=== PATIENT | male | born 1970 | race Caucasian/White ===

== ENCOUNTER 2018-07-01 20:18 | Emergency (ER) | payer BC, SELFPAY ==
[2018-07-01 20:19] VITALS: BP 160/98; PULSE 71; RESP 18; TEMP 36.8; O2SAT 99; BMI 31.0
[2018-07-01 20:35] LABS: Bacteria 0 SEEN /hpf (None Seen); Mucous, Urine 0 SEEN /hpf (<or=2+); Squamous Epithelial Cells - UA 0 SEEN /hpf (0-5)
[2018-07-01 20:36] LABS: Color, Urine Yellow (Yellow); Glucose, Dipstick Normal (Normal); Ketone-Dipstick Negative (Negative); Leukocyte Esterase-Dipstick Negative /ul (Negative); Nitrite-Dipstick Negative (Negative); Occult Blood-Urine 250 /ul (Negative); Protein-Dipstick Negative (Negative); Urine Bilirubin Dipstick Negative (Negative); Urine Clarity Clear (Clear); Urine Urobilinogen Normal (Normal); Urine pH 6.5 (5.0 - 8.0)
[2018-07-01 21:07] LABS: Red Blood Cells-Urine 25-50 SEEN /hpf (0-5); White Blood Cells 0-5 SEEN /hpf (0-5)
[2018-07-01 21:11] LABS: Absolute Lymphocyte Count 1.71 X10^3/ul (0.83-4.51); Absolute Neutrophil Count 3.2 X10^3/uL (2.0-7.7); Basophil# 0.01 X10^3/uL; Basophil% 0.2 % (0-1); Eosinophil# 0.13 X10^3/uL; Eosinophils% 2.3 % (0-5); Hematocrit 41.6 % (40-54); Hemoglobin 14.3 g/dl (13.0-16.5); Lymphocyte # 1.71 X10^3/ul (4.0); Lymphocyte % 30.8 % (19-41); Mean Corp Hgb Conc 34.4 g/gl (32-36); Mean Corpuscular Hgb 30.7 pg (27.0-32.0); Mean Corpuscular Volume 89.3 fL (80-94); Mean Platelet Vol. 10.4 fl (6.2-12.0); Monocyte# 0.46 X10^3/uL; Monocyte% 8.3 % (0-10); Neutrophil # 3.22 X10^3/uL (2.7-7.7); Platelet Count 164 K/mm3 (150-450); RBC Distribution Width CV 12.7 % (11.6-14.6); RBC Distribution Width SD 41.3 fl (35.1-43.9); Red Blood Count 4.66 M/mm3 (4.6-6.2); White Blood Count 5.6 K/mm3 (4.4-11.0)
[2018-07-01 21:17] LABS: POSITIVE COUNT NO; POSITIVE DIFFERENTIAL NO; POSITIVE MORPHOLOGY NO
[2018-07-01 21:21] LABS: Anion Gap 4 (5-15); BUN 15 mg/dL (7-18); BUN/Creat Ratio 13.3 RATIO (10-20); Calcium,Total 8.4 mg/dL (8.5-10.1); Chloride 109 mmol/L (98-107); Creatinine, Serum 1.13 mg/dL (0.70-1.30); EST Glomerular Filtration Rate 74 mL/min (>60); Est Glom Filt Rate - Afr Amer 89 mL/min (>60); Estimated Creatinine Clearance 85.15 ml/min; Glucose 122 mg/dL (74-106); Potassium 3.9 mmol/L (3.5-5.1); Sodium Level 142 mmol/L (136-145)
[2018-07-01] MEDS: 0.9% Normal Saline 1,000 ML 1000 ML IV (21:31)
[2018-07-01] MEDS: Ketorolac 30 MG/ML Syringe IV (21:31)
[2018-07-01 22:00] LABS: AST(SGOT) 25 U/L (15-37); Alanine Aminotransfer ALT/SGPT 46 U/L (16-61); Albumin, Serum 3.7 g/dL (3.2-5.0); Alkaline Phosphatase 109 U/L (45-117); Bilirubin, Direct 0.08 mg/dL (0.00-0.30); Globulin 3.6 g/dL (2.2-4.2); Lipase 135 U/L (73-393); Protein, Total 7.3 g/dL (6.4-8.2)
[2018-07-01 22:20] VITALS: RESP 18
[2018-07-01] MEDS: Morphine 4 MG/ML Syringe IV (22:25)
[2018-07-01] MEDS: Ondansetron 4 MG/2 ML Vial IV (22:25)
--- NOTE | 2018-07-01 23:25 | ED.VISSUMM ---
- ER Visit Summary Date of Service: 07/01/18 Chief Complaint: Flank pain History of Present Illness: The patient is a 48 M who presents with flank pain. It began about 3 days ago. He complains of right lower back pain and right upper quadrant abdominal pain. He currently rates it as 8 out of 10. It is aching in nature. He did have radiation to the right lower abdomen and groin earlier although this seems to be higher now. He reports urinary urgency and does believe there was some associated hematuria. He does have a history of prior kidney stones and notes that this feels similar. He denies fevers. He denies dysuria. Physical Examination: Afebrile vitals are unremarkable Patient in no apparent distress Moist mucous membranes Heart regular rate and rhythm Lungs are clear Abdomen soft nondistended he does have some right upper quadrant tenderness but no guarding no rebound no Rollins's sign Patient also has some reproducible right CVA tenderness Alert Test Results: CBC BMP unremarkable. Hepatic function lipase are unremarkable. Urinalysis shows 250 blood and 25-[address] the flank shows a 3.6 mm distal right ureteral calculus just proximal to the UVJ. There is note made of a prominent appendix however this is similar in appearance to prior scan. Emergency Department Course and Treatment: Patient was initially treated with IV fluids and Toradol. He continued to complain of pain and was given morphine and Zofran and on reevaluation has only minimal pain and his pain is nearly resolved. I did also obtain liver function lipase given that his pain seemed to be higher than I would expect with a ureteral calculus however his CT the flank does confirm distal ureteral calculus. He will follow-up as an outpatient with urology. He was given prescriptions for Percocet and Flomax. He understands to return for new or worsening symptoms and was instructed on specific signs and symptoms to monitor for. Treatment Plan: [] Disposition: Discharge Impression: Ureterolithiasis This note was generated with [employer] dictation software. It may contain incorrect words, spelling, and punctuation that were not noted in review of the chart prior to signing ED Disposition - Plan for ED Patient: Chief Complaint: Flank Pain Referrals: Niurka Marina DO [Primary Care Provider] -
--- NOTE | 2018-07-01 23:28 | ED.DEP ---
ED Disposition - Plan for ED Patient: Chief Complaint: Flank Pain Instructions: ED Stone Renal W Colic Prescriptions: Oxycodone HCl/Acetaminophen [Percocet 5/325] 1 tab PO Q6H PRN PRN 3 Days #12 tab PRN Reason: Pain Tamsulosin HCl [Flomax] 0.4 mg PO DAILY #7 cap Referrals: Niurka Marina DO [Primary Care Provider] - Delonte Kendrick MD [STAFF PHYSICIAN] -
[2018-07-01 23:42] VITALS: BP 160/98; PULSE 71; RESP 18; O2SAT 99
== END 2018-07-01 23:43 | disposition home or self-care (01) ==
LOC: ED 21:40
PROVIDERS: Emergency Provider Emergency Medicine
DX: N20.1 Calculus of ureter (principal); R31.9 Hematuria, unspecified; Z87.442 Personal history of urinary calculi
CPT/HCPCS: 74176; 80048; 80076; 81001; 83690; 85025; 96361; 96374; 96375; 99283; J2405

== ENCOUNTER 2018-08-01 10:30 | Emergency (ER) | payer BC, SELFPAY ==
[2018-08-01 10:31] VITALS: BP 137/88; PULSE 52; RESP 15; TEMP 36.5; O2SAT 99; BMI 66.1
--- NOTE | 2018-08-01 10:33 | NURSING ---
NO OLD EKGS
--- NOTE | 2018-08-01 11:41 | RAD_ITS ---
STUDY: X-RAY CHEST REASON FOR EXAM: Male, 48 years old. Syncope TECHNIQUE: Single AP portable view of the chest. COMPARISON: None. FINDINGS: The lungs are clear and expanded. There is no demonstrated pleural abnormality. There is borderline cardiomegaly. Normal mediastinum and naren. Normal visualized pulmonary arteries. Normal visualized aortic arch and descending thoracic aorta. There are diffuse degenerative changes of the visualized thoracic spine. There is degenerative osteoarthritis of the bilateral shoulders. There is no demonstrated abnormality of the visualized soft tissue structures of the upper abdomen. RAD/Chest 1 View (Portable) IMPRESSION: No acute cardiopulmonary disease. Electronically Signed: Serge Abarca DO at 12:36 EDT Tel , Service support ,
--- NOTE | 2018-08-01 11:41 | EKG12_ITS ---
Test Reason : CP Blood Pressure : / mmHG Vent. Rate : 055 BPM Atrial Rate : 055 BPM P-R Int : 158 ms QRS Dur : 092 ms QT Int : 428 ms P-R-T Axes : 027 012 047 degrees QTc Int : 409 ms Sinus bradycardia Otherwise normal ECG Confirmed by ANALISA SAUNDERS, KAREL ([id number]), editorial project manager TAYLOR NOLASCO ([id number]) on 08/02/2018 1:29:41 PM Referred By: SHADI Confirmed By:KAREL HAUSER MD
[2018-08-01 11:50] LABS: Absolute Lymphocyte Count 1.78 X10^3/ul (0.83-4.51); Absolute Neutrophil Count 2.5 X10^3/uL (2.0-7.7); Basophil# 0.02 X10^3/uL; Basophil% 0.4 % (0-1); Hematocrit 40.7 % (40-54); Hemoglobin 13.5 g/dl (13.0-16.5); Lymphocyte # 1.78 X10^3/ul (4.0); Mean Corp Hgb Conc 33.2 g/gl (32-36); Mean Corpuscular Hgb 29.8 pg (27.0-32.0); Mean Corpuscular Volume 89.8 fL (80-94); Mean Platelet Vol. 10.3 fl (6.2-12.0); Monocyte# 0.57 X10^3/uL; Monocyte% 11.5 % (0-10); Neutrophil # 2.46 X10^3/uL (2.7-7.7); Neutrophil % 49.9 % (47-70); Platelet Count 158 K/mm3 (150-450); RBC Distribution Width CV 12.8 % (11.6-14.6); RBC Distribution Width SD 41.6 fl (35.1-43.9); Red Blood Count 4.53 M/mm3 (4.6-6.2); White Blood Count 4.9 K/mm3 (4.4-11.0)
[2018-08-01 11:54] LABS: POSITIVE COUNT NO; POSITIVE DIFFERENTIAL NO; POSITIVE MORPHOLOGY NO
[2018-08-01 11:55] LABS: Anion Gap 8 (5-15); BUN 14 mg/dL (7-18); BUN/Creat Ratio 14.4 RATIO (10-20); Calcium,Total 8.6 mg/dL (8.5-10.1); Chloride 110 mmol/L (98-107); Creatinine, Serum 0.97 mg/dL (0.70-1.30); EST Glomerular Filtration Rate 87 mL/min (>60); Est Glom Filt Rate - Afr Amer 106 mL/min (>60); Estimated Creatinine Clearance 99.19 ml/min; Glucose 96 mg/dL (74-106); Potassium 3.9 mmol/L (3.5-5.1); Sodium Level 144 mmol/L (136-145)
[2018-08-01 12:18] VITALS: BP 137/97; BP 137/99; BP 140/102; BP 146/95; PULSE 55; PULSE 58; PULSE 60; RESP 15; O2SAT 98
--- NOTE | 2018-08-01 12:47 | ED.VISSUMM ---
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 He went to lay down and felt nauseated to the point where he felt he might throw up. On the way the bathroom he got very weak fell down when he states that he seemed pale. States he feels better now he denies any diarrhea. States he noted he did get some rug yepez on his lower extremities. No other injuries Physical Examination: Afebrile vital signs are stable Gen: Well-nourished well-developed Head: Normocephalic atraumatic Eyes: Perrl EOMI ENT: TMs clear no rhinorrhea moist mucous membranes Neck: Supple no lymphadenopathy no JVD nontender CVS: Regular rate rhythm no murmurs normal S1-S2 Respiratory: No distress clear to auscultation bilaterally chest nontender Abdomen: Soft nontender nondistended normal bowel sounds no masses Back: Nontender Extremity: Nontender no edema Skin: Normal color no rash superficial rug yepez. Neuro: alert orientated ?3 CN II-XII intact normal strength sensation reflexes gait (observed while patient was walking to the bathroom)cerebellar Psych: Normal affect normal mood Test Results: Chest x-ray negative. EKG sinus at a rate of 55. CBC and chemistries were negative. Emergency Department Course and Treatment: I believe this to be vasovagal in nature. Patient will be discharged home. He was advised with his nausea perhaps he is coming down with a viral gastroenteritis but at this time we will have him observe himself at home. Impression: 1. Vasovagal near syncope This note was generated with [employer] dictation software. It may contain incorrect words, spelling, and punctuation that were not noted in review of the chart prior to signing ED Disposition - Plan for ED Patient: Disposition: Home or Assisted Living Chief Complaint: Syncope Instructions: ED Near Syncope Vasovagal Referrals: Niurka Marina DO [Primary Care Provider] - As Needed
--- NOTE | 2018-08-01 12:51 | ED.DCSUM_ITS ---
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 He went to lay down and felt nauseated to the point where he felt he might throw up. On the way the bathroom he got very weak fell down when he states that he seemed pale. States he feels better now he denies any diarrhea. States he noted he did get some rug yepez on his lower extremities. No other injuries Physical Examination: Afebrile vital signs are stable Gen: Well-nourished well-developed Head: Normocephalic atraumatic Eyes: Perrl EOMI ENT: TMs clear no rhinorrhea moist mucous membranes Neck: Supple no lymphadenopathy no JVD nontender CVS: Regular rate rhythm no murmurs normal S1-S2 Respiratory: No distress clear to auscultation bilaterally chest nontender Abdomen: Soft nontender nondistended normal bowel sounds no masses Back: Nontender Extremity: Nontender no edema Skin: Normal color no rash superficial rug yepez. Neuro: alert orientated ?3 CN II-XII intact normal strength sensation reflexes gait (observed while patient was walking to the bathroom)cerebellar Psych: Normal affect normal mood Test Results: Chest x-ray negative. EKG sinus at a rate of 55. CBC and chemistries were negative. Emergency Department Course and Treatment: I believe this to be vasovagal in nature. Patient will be discharged home. He was advised with his nausea perhaps he is coming down with a viral gastroenteritis but at this time we will have him observe himself at home. Impression: 1. Vasovagal near syncope This note was generated with [employer] dictation software. It may contain incorrect words, spelling, and punctuation that were not noted in review of the chart prior to signing ED Disposition - Plan for ED Patient: Disposition: Home or Assisted Living Chief Complaint: Syncope Instructions: ED Near Syncope Vasovagal Referrals: Niurka Marina DO [Primary Care Provider] - As Needed
[2018-08-01 13:17] VITALS: BP 138/80; PULSE 60; RESP 16; O2SAT 99
== END 2018-08-01 13:18 | disposition home or self-care (01) ==
LOC: ED 11:21
PROVIDERS: Emergency Provider Emergency Medicine
DX: R55 Syncope and collapse (principal)
CPT/HCPCS: 71045; 80048; 85025; 93005; 99285; A4216

== ENCOUNTER 2018-08-07 03:30 | Emergency (ER) | payer BC, SELFPAY ==
--- NOTE | 2018-08-07 03:42 | EKG12_ITS ---
Test Reason : Blood Pressure : / mmHG Vent. Rate : 091 BPM Atrial Rate : 091 BPM P-R Int : 152 ms QRS Dur : 088 ms QT Int : 368 ms P-R-T Axes : 028 005 067 degrees QTc Int : 452 ms Normal sinus rhythm Confirmed by DOMINIC SAUNDERS, CARISSA ([id number]), image editor TAYLOR NOLASCO ([id number]) on 08/10/2018 2:23:36 PM Referred By: JALEEL Confirmed By:CARISSA ALFARO MD
[2018-08-07 04:48] LABS: BUN 13 mg/dL (7-18); BUN/Creat Ratio 12.3 RATIO (10-20); Calcium,Total 9.5 mg/dL (8.5-10.1); Creatinine, Serum 1.06 mg/dL (0.70-1.30); EST Glomerular Filtration Rate 79 mL/min (>60); Est Glom Filt Rate - Afr Amer 96 mL/min (>60); Glucose 151 mg/dL (74-106)
[2018-08-07 04:49] LABS: Anion Gap 10 (5-15); Chloride 104 mmol/L (98-107); Potassium 3.6 mmol/L (3.5-5.1); Sodium Level 142 mmol/L (136-145)
[2018-08-07 04:50] LABS: Absolute Lymphocyte Count 1.51 X10^3/ul (0.83-4.51); Absolute Neutrophil Count 4.5 X10^3/uL (2.0-7.7); Basophil# 0.01 X10^3/uL; Basophil% 0.1 % (0-1); Eosinophil# 0.08 X10^3/uL; Eosinophils% 1.2 % (0-5); Hematocrit 47.5 % (40-54); Hemoglobin 16.2 g/dl (13.0-16.5); Lymphocyte # 1.51 X10^3/ul (4.0); Lymphocyte % 22.6 % (19-41); Mean Corp Hgb Conc 34.1 g/gl (32-36); Mean Corpuscular Hgb 30.2 pg (27.0-32.0); Mean Corpuscular Volume 88.6 fL (80-94); Monocyte# 0.51 X10^3/uL; Monocyte% 7.6 % (0-10); Neutrophil # 4.54 X10^3/uL (2.7-7.7); Neutrophil % 68.2 % (47-70); Platelet Count 164 K/mm3 (150-450); RBC Distribution Width CV 12.7 % (11.6-14.6); RBC Distribution Width SD 41.7 fl (35.1-43.9); Red Blood Count 5.36 M/mm3 (4.6-6.2); White Blood Count 6.7 K/mm3 (4.4-11.0)
[2018-08-07 04:55] LABS: POSITIVE COUNT NO; POSITIVE DIFFERENTIAL NO; POSITIVE MORPHOLOGY NO
--- NOTE | 2018-08-07 05:01 | ED.VISSUMM ---
- ER Visit Summary Date of Service: 08/07/18 Chief Complaint: [] Near syncope History of Present Illness: The patient is a 48 M [] patient stated he was in the emergency department last Monday for syncope at home. He was told he had a vagal episode. He reported a negative workup. He had near syncope tonight as he stood up from being on his hands and knees too quickly. He felt lightheaded for about 5-10 minutes. He did not pass out. He denies any other associated symptoms. No chest pain or shortness of breath. He feels normal now. No cardiac PE or dissection risk factors. He has appointment with his doctor this morning. Physical Examination: [] Vital signs reviewed General: Well-nourished well-developed Head: Normocephalic atraumatic Eyes: Pupils equal round and reactive to light extraocular movements intact ENT: TMs clear no hemotympanum no trauma Neck: Nontender full range of motion Cardiovascular: Regular rate rhythm no murmurs normal S1-S2 Respiratory: No distress clear to auscultation bilaterally chest nontender Abdomen: Soft nontender nondistended normal bowel sounds no masses Back: Nontender no CVA tenderness Extremities: Nontender active range of motion ?4 extremities no trauma Skin: Normal color no trauma Neuro alert oriented cranial nerves II through XII intact normal strength sensation reflexes Test Results: [] Emergency Department Course and Treatment: [] EKG shows sinus rhythm 91 without acute ischemia or STEMI. CBC chemistry troponin negative. At this time I feel the patient just had a vasovagal episode and will follow up. Treatment Plan: [] Disposition: [] Impression: [] Near syncope likely secondary to vasovagal episode This note was generated with [employer] dictation software. It may contain incorrect words, spelling, and punctuation that were not noted in review of the chart prior to signing ED Disposition - Plan for ED Patient: Referrals: Niurka Marina DO [Primary Care Provider] -
== END 2018-08-07 05:02 | disposition home or self-care (01) ==
PROVIDERS: Emergency Provider Emergency Medicine
DX: R55 Syncope and collapse (principal); Z87.442 Personal history of urinary calculi
CPT/HCPCS: 36415; 80048; 84484; 85025; 93005; 99283; A4216

== ENCOUNTER 2020-03-22 04:54 | Emergency (ER) | payer BC, SELFPAY ==
[2020-03-22 04:54] VITALS: BP 160/99; PULSE 71; RESP 18; TEMP 36.4; O2SAT 98; BMI 29.9
--- NOTE | 2020-03-22 04:58 | ED.DCSUM_ITS ---
History of Present Illness Chief Complaint: Flank Pain Informant: Patient - Abdominal Pain/Flank Pain Onset: Yesterday Context: Gradual Onset - w/ sudden worsening this AM Timing: Continuous, Waxes and wanes Quality: Aching Location: Left Flank Current Severity: Severe Maximum Severity: Severe Worsened by: Nothing Relieved by: Nothing - Nausea/Vomiting/Emesis GI Symptom: Nausea. Negative for: Vomiting - Diarrhea/Melena/Hematochezia GI Symptom: Negative for: Diarrhea, Melena, Hematochezia Associated Symptoms: Hematuria - without clots/retention. Negative for: Dysuria, Frequency, Urgency Narrative: Left low back pain that started yesterday and was relatively mild but worsened, especially this morning when he woke up with hematuria. Pain more severe along with nausea. No fevers. No burning dysuria. History of kidney stones he has passed many in the past, states it has been quite a while since he has had one. Prior similar symptoms: Yes - kidney stones in the past - Past Medical History (1) Kidney stones Status: Chronic Past Medical History - Allergies and Home Meds Allergies/Adverse Reactions: Allergies Penicillins Allergy (Verified 08/01/18 10:34) Unknown Primary Care Physician: Niurka Marina DO [Primary Care Provider] - Surgical History: - - no prior abdominal or urologic surgeries Smoking Status: Never smoker Review of Systems General: Denies: Chills, Fever, Sweats Eyes: Denies: Visual changes - bilaterally, Diplopia ENT: Denies: Rhinorrhea, Sore throat Cardiovascular: Denies: Chest pain, Palpitations Respiratory: Denies: Dyspnea, Cough, Dyspnea on exertion Gastrointestinal: Reports: Abdominal pain, Nausea. Denies: Vomiting, Diarrhea, Melena, Hematochezia Genitourinary: Reports: Hematuria. Denies: Dysuria, Frequency Musculoskeletal: Reports: Back pain. Denies: Neck pain, Swelling, Extremity Pain Skin: Denies: Rash, Wounds Neurological: Denies: Headache, Weakness, Numbness Physical Exam Vital Signs/Narrative: Vital Signs Temp Pulse Resp BP Pulse Ox 03/22/20 04:54 97.6 F L 71 18 160/99 H 98 Inital Vital Signs reviewed: Yes General: Well nourished, Well developed, Acute Distress - painful Head: Normocephalic, Atraumatic Eyes: Perrl, EOMI ENT: Moist mucous membranes, No rhinorrhea Neck: Supple, Nontender Cardiovascular: Regular rate, Regular rhythm, No murmurs. Negative for: Tachycardia Respiratory: No distress, CTA bilaterally, Chest nontender Abdomen: Soft, Nontender, Nondistended, Normal bowel sounds Back: Normal Inspection - no rash, CVA tenderness - left only Extremities: Nontender, No edema Skin: Normal color, No rash, No Trauma Neurological: Alert, Oriented x3, Cranial nerves II-XII grossly intact, Normal Strength, Normal Sensation, Normal Gait Psychological: Normal affect, Normal Mood Diagnostic/Tx/Re-eval Impressions Abdomen/Pelvis CT 03/22/20 04:58 IMPRESSION: 1 to 2 mm distal left ureteral calculus with minimal obstruction. Nonobstructing left renal calculi. Stable degenerative changes and prosthetic calcification. Electronically Signed: Mary Carmen Barry MD at 5:45 EDT , Service support , 03/22/20 04:58 Abdomen/Pelvis without Cont [CT] Stat Laboratory Results 03/22/20 05:05 Urine Color Red Urine Clarity Cloudy Urine pH 5.0 Ur Specific [place] 1.025 Urine Protein 100 H Urine Glucose (UA) Normal Urine Ketones 5 H Urine Occult Blood 250 H Urine Nitrite Negative Urine Bilirubin Negative Urine Urobilinogen Normal Ur Leukocyte Esterase 25 H Urine RBC > 100 SEEN Urine WBC 5-10 SEEN Ur Squamous Epith Cells 0 SEEN Calcium Oxalate Crystal RARE Urine Bacteria 0 SEEN Urine Mucus 0 SEEN - Medical Decision Making Patient was treated with Zofran and Toradol initially, but the Toradol did not help his pain. Subsequently he was given morphine 4 mg, and is feeling much better. He appears well and his vital signs are stable. I performed a CT since he had not had a stone in a long time, it showed several nonobstructing left small renal stones, and an obstructing 1-2 mm distal left ureteral stone as above. No signs of infection on urinalysis. He will be treated as an outpatient with expectant management, prescriptions for Percocet and Zofran, and reasons to return given uncontrolled symptoms, fevers, urinary retention. Given urology to follow-up with if he does not pass the stone within a week and does not require return visit to the emergency room. All questions answered at bedside he is comfortable with discharge. ED Disposition - Plan for ED Patient: Disposition: Home or Assisted Living Diagnosis: Ureteral colic, Urolithiasis Instructions: ED Renal Stone w Colic Prescriptions: Oxycodone HCl/Acetaminophen [Percocet 5/325] 1 tab PO Q4H PRN 3 Days #15 tab PRN Reason: Pain Prescription Printed Ondansetron [Zofran Odt] 8 mg PO Q8H PRN PRN #20 tab PRN Reason: Nausea Prescription Printed Referrals: Niurka Marina DO [Primary Care Provider] - Delonte Kendrick MD [STAFF PHYSICIAN] - 1 Week if not improving
--- NOTE | 2020-03-22 04:58 | CT_ITS ---
STUDY: CT ABDOMEN AND PELVIS WITHOUT CONTRAST REASON FOR EXAM: Male, 50 years old. HEMATURIA AND LEFT FLANK PAIN/HX OF [place] RADIATION DOSAGE (If Supplied By Facility): CTDIvol = ( 13.23 ) mGy, DLP = ( 737.09 ) mGycm TECHNIQUE: Transaxial 2.5 mm images were obtained from the dome of the diaphragm to the symphysis pubis without oral contrast, and without intravenous contrast. Sagittal and coronal images were reconstructed. This examination is limited for the evaluation of gastrointestinal, solid organs and vascular structures due to the lack of intravenous and oral contrast. Individualized dose optimization techniques were used for this CT. COMPARISON: CT abdomen and pelvis 07/01/2018. 02/03/2016. FINDINGS: The visualized lung bases are unremarkable. The visualized portions of the heart are within normal limits. Normal liver. Normal gallbladder and extrahepatic biliary system. Normal spleen. Normal pancreas. Normal bilateral adrenal glands. There is no right obstructive uropathy, obstructive renal or ureteral calculi. There are at least 3 nonobstructing renal calculi, largest in the inferior pole of 0.3 cm. Minimal left hydronephrosis and hydroureter with a 1 to 2 mm distal left ureteral calculus approximately 4 cm superior to the UVJ. Normal visualized stomach. Normal small intestine. Normal colon. The appendix is visualized and appears normal. Normal abdominal aorta. Normal inferior vena cava. Normal retroperitoneum. Decompressed urinary bladder. There are prostatic calcifications. Prior ostectomy. Normal abdominal wall. There are stable degenerative changes of the visualized lower thoracic spine. CT/Abdomen/Pelvis without Cont IMPRESSION: 1 to 2 mm distal left ureteral calculus with minimal obstruction. Nonobstructing left renal calculi. Stable degenerative changes and prosthetic calcification. Electronically Signed: Mary Carmen Barry MD at 5:45 EDT , Service support ,
[2020-03-22] MEDS: Ketorolac 30 MG/ML Syringe IV (05:06)
[2020-03-22] MEDS: Ondansetron 4 MG/2 ML Vial IV (05:06)
[2020-03-22 05:13] LABS: Bacteria 0 SEEN /hpf (None Seen); Mucous, Urine 0 SEEN /hpf (<or=2+); Squamous Epithelial Cells - UA 0 SEEN /hpf (0-5)
[2020-03-22 05:16] LABS: Color, Urine Red (Yellow); Glucose, Dipstick Normal (Normal); Ketone-Dipstick 5 mg/dl (Negative); Leukocyte Esterase-Dipstick 25 /ul (Negative); Nitrite-Dipstick Negative (Negative); Occult Blood-Urine 250 /ul (Negative); Protein-Dipstick 100 mg/dl (Negative); Specific Gravity, Urine 1.025 (1.002-1.030); Urine Bilirubin Dipstick Negative (Negative); Urine Clarity Cloudy (Clear); Urine Urobilinogen Normal (Normal)
[2020-03-22 05:28] LABS: White Blood Cells 5-10 SEEN /hpf (0-5)
[2020-03-22 05:29] LABS: Calcium Oxalate Crystals Ur RARE /hpf (<or=2+); Red Blood Cells-Urine > 100 SEEN /hpf (0-5)
[2020-03-22] MEDS: Morphine 4 MG/ML Syringe IV (05:44)
--- NOTE | 2020-03-22 05:45 | ED.RN ---
SCANNER IN ROOM NOT WORKING. ANESTHESIA TECH AWARE.
[2020-03-22 06:02] VITALS: BP 112/83; PULSE 56; RESP 16; O2SAT 95
== END 2020-03-22 06:03 | disposition home or self-care (01) ==
PROVIDERS: Emergency Provider Emergency Medicine
DX: N13.2 Hydronephrosis with renal and ureteral calculous obstruction (principal); Z88.0 Allergy status to penicillin; Z87.442 Personal history of urinary calculi
CPT/HCPCS: 74176; 81001; 96374; 96375; 99283; A4216; J2405

== ENCOUNTER 2020-12-02 12:11 | Day surgery (SDC) | payer BC, SELFPAY ==
[2020-12-02] VITALS (7 sets, daily range): BP systolic 117–143; BP diastolic 74–94; PULSE 62–75; RESP 16–20; TEMP 36.1–36.9; O2SAT 93–98; BMI 30.8
--- NOTE | 2020-12-02 12:28 | PCM.HP.STD ---
Problem List (1) Left ureteral calculus Status: Acute History of Present Illness Date of Admission: 12/02/20 The patient is a 50 year old male ureteral calculi today I plan to proceed with left ureteroscopy laser of the stone and removal of stone fragments possible stent. Past Medical History Past Medical History (Chronic Problems): Chronic Problems Kidney stones (Chronic) Allergies Penicillins Allergy (Verified 12/02/20 12:28) Unknown Home Medications: Ambulatory Orders Medication Instructions Recorded Oxycodone HCl/Acetaminophen 1 ea PO PRN PRN 11/25/20 [Oxycodone-Acetaminophen 5-325] Tamsulosin HCl [Flomax] 0.4 mg PO DAILY 11/25/20 Surgical History: - - no prior abdominal or urologic surgeries Smoking Status: Current every day smoker Tobacco Use: Chew Review of Systems Constitutional: Denies: Chills, Fever, Weight Change HEENT: Denies: Head Aches, Sinus Congestion, Sinus Drainage Cardiovascular: Denies: Chest Pain, Palpitations Respiratory: Denies: Cough, Shortness of breath at rest, Sputum production Gastrointestinal: Denies: Abdominal Pain, Nausea, Vomiting Genitourinary: Denies: Dysuria Musculoskeletal: Denies: Joint Pain, Joint Tenderness Skin: Denies: Rash, Wounds Neurological: Denies: Numbness, Tingling, Focal weakness Psychiatric: Denies: Anxiety, Depression, Homicidal Ideations, Suicidal Ideations Hematologic/ Lymphatic: Denies: Easy Bruising, Easy Bleeding VTE Information - Inpt Only VTE Present on Admission: No - Physical Exam Vitals/I&O's: Body Mass Index (BMI) 29.9 General: Alert, Oriented x3, Cooperative HEENT: Atraumatic, PERRLA, EOMI, Normocephalic Neck: Supple, No JVD, Negative Carotid Bruits Lungs: Clear to auscultation, Normal air movement Cardiovascular: Regular rate, No murmurs Abdomen: Bowel Sounds Present, Soft, Non Tender Extremities: No edema, Capillary Refill Less than 3 Seconds Skin: No rashes, No breakdown Musculoskeletal: No Tenderness to Palpation of Joints or Extremities Neurological: Cranial nerves II-XII grossly intact Psych/Mental Status: Normal Affect, Appropriate Microbiology Past 72 Hours 12/01/20 08:45 Interface Orders SARS-CoV-2 Antigen (Rapid) - Final Assessment/Plan All Active Problems Left ureteral calculus (Acute) Plan to proceed with left ureteroscopy laser of stone and possible stent.
--- NOTE | 2020-12-02 12:30 | PCM.DC.URO ---
Discharge Diet: Light diet - advance as tolerated Discharge Activity: Return to Normal Activity Call your doctor if your incision/area has: Sudden Increased Bleeding Catheter: Macias to leg bag, Macias to large bag Drain: [place] Allergies/Adverse Reactions: Allergies Penicillins Allergy (Verified 12/02/20 12:28) Unknown Medications to take at Discharge Oxycodone HCl/Acetaminophen [Oxycodone-Acetaminophen 5-325] 1 ea PO PRN PRN 11/25/20 Tamsulosin HCl [Flomax] 0.4 mg PO DAILY 11/25/20 Primary Care Physician: Niurka Marina DO [Primary Care Provider] - Test Results: Test results from this visit will be discussed in further detail at your follow-up appointment, if applicable. Please Follow Up With: Delonte Kendrick MD When: 10 days, please call to make an appointment.
--- NOTE | 2020-12-02 12:33 | DCINST_ITS ---
Discharge Diet: Light diet - advance as tolerated Discharge Activity: Return to Normal Activity Call your doctor if your incision/area has: Sudden Increased Bleeding Allergies/Adverse Reactions: Allergies Penicillins Allergy (Verified 12/02/20 12:28) Unknown Medications to take at Discharge Oxycodone HCl/Acetaminophen [Oxycodone-Acetaminophen 5-325] 1 ea PO PRN PRN 11/25/20 Tamsulosin HCl [Flomax] 0.4 mg PO DAILY 11/25/20 Primary Care Physician: Niurka Marina DO [Primary Care Provider] - Test Results: Test results from this visit will be discussed in further detail at your follow- up appointment, if applicable. Please Follow Up With: Delonte Kendrick MD When: in 2 weeks, please call to make an appointment.
[2020-12-02] MEDS: Lactated Ringers 1,000 ML 100 ML IV (12:49)
[2020-12-02] MEDS: Cefazolin 2 GM in 0.9% Normal Saline 100 ML IV (14:36)
--- NOTE | 2020-12-02 15:07 | PCM.OPRPT ---
Problem List (1) Left ureteral calculus Status: Acute Report of Operation Date of Procedure: 12/02/20 Pre-Operative Diagnosis: Left ureteral calculi Post-Operative Diagnosis: Same Surgery/Procedure Performed:: Cystoscopy, left ureteroscopy laser of stone, balloon dilation of the left ureter, left retrograde pyelogram interpretation fluoroscopic images. Description of Surgical Findings:: This is a patient who presents to the hospital for treatment for an obstructing distal ureter calculi. I discussed with the patient how the surgery would be performed and we reviewed the risks and benefits of the surgery. The risk and benefits include the risk of failure to remove the stone completely and that the patient may need multiple procedures. We discussed the risk of an infection, the risk of bleeding. We discussed the very rare risk of serious complicated injury to the ureter. The patient understands that if the stone is not able to be removed safely that we may abort the procedure and place a stent. After full discussion and all questions address with the patient the consent form was signed the side was marked appropriately and the patient was taken back to the operating room for the procedure. The patient was taken back to the operating room. After induction of anesthesia by the anesthesiology team the patient was placed in dorsolithotomy position. The genitals were prepped and draped in usual sterile fashion. I went into the bladder with a 21 Serbian rigid cystourethroscope through the urethra. Upon entering the bladder I inspected the trigone the left and right ureteral orifice and the bladder itself. I then cannulated the Left ureteral orifice and advanced a 0.038 Glidewire up into the kidney. Then over the Glidewire I advanced a 5 Fr Ureteral catheter and performed a retrograde pyelogram with about 10cc of contrast, to delineate the anatomy and identify the stone location in the distal ureter. Then a ureteral balloon dilator was advanced over the wire and the distal ureter was balloon dilated with a 12 Fr x 5cm balloon dilator. After 3 minutes of dilating the ureter the balloon was backloaded off the 0.038 glidewire then the safety wire was left in place. I then placed a second 0.038 Guidewire as a working wire and over the working 0.038 guidewire I went in with the abhi rigide 7.5fr ureteroscope. I was able to go inside with the 7.5Fr abhi rigid utereroscope and I pulled out the working guidewire and then through the 7.5 fr simirigid ureteroscope I engage the stone in the distal ureter with laser lithotripsy using a 270miron laser fiber with energy setting of 6 Hertz and 0.6 J until the stone was lasered into tiny little pieces that should pass on their own. A retrograde pyelogram was performed with 10cc of contrast and no extravasation of contrast or perforation was identified in the ureter there was some mild irritation of the ureter where the stone was located. I then drained the patient's bladder and the cystoscope was removed and the patient was taken back to the recovery room in good position. The patient was given discharge instructions to call the office for instructions on follow up. Type of Anesthesia:: General Drains: no stent - Admit VTE Documentation VTE Present on Admission: No
[2020-12-02] MEDS: Ketorolac 15 MG/ML Vial IV (15:32)
== END 2020-12-02 17:00 | disposition home or self-care (01) ==
LOC: SDC 12:11 → AC 12:12
PROVIDERS: Referring Provider Urology; Visit Provider Urology
PROC: 0TJ98ZZ Inspection of Ureter, Via Natural or Artificial Opening Endoscopic (ICD-10-PCS; CPT 52352; principal; 2020-12-02 14:10)
DX: N20.2 Calculus of kidney with calculus of ureter (principal); F17.220 Nicotine dependence, chewing tobacco, uncomplicated; Z79.899 Other long term (current) drug therapy; Z87.442 Personal history of urinary calculi
CPT/HCPCS: 00918; 52353; 76000; 87426; C9803; J7120; C1769; J2405

== ENCOUNTER 2025-07-12 20:19 | Emergency (ER) | payer OTHER, SELFPAY ==
[2025-07-12 20:24] VITALS: BP 181/101; PULSE 67; RESP 18; TEMP 36.6; O2SAT 97; BMI 32.4
--- NOTE | 2025-07-12 20:55 | EKG12_ITS ---
Test Reason : Blood Pressure : */* mmHG Vent. Rate : 56 BPM Atrial Rate : 56 BPM P-R Int : 154 ms QRS Dur : 90 ms QT Int : 418 ms P-R-T Axes : 25 9 59 degrees QTcB Int : 403 ms Sinus bradycardia Nonspecific ST abnormality Abnormal ECG Confirmed by Brad Benjamin [id number]), supervising editor trailer JUAN MANZO ([id number]) on 07/15/2025 10:32:35 AM Referred By: Confirmed By: Brad Benjamin
--- NOTE | 2025-07-12 21:00 | EKG12_ITS ---
Test Reason : REPEAT Blood Pressure : */* mmHG Vent. Rate : 50 BPM Atrial Rate : 50 BPM P-R Int : 158 ms QRS Dur : 90 ms QT Int : 436 ms P-R-T Axes : 28 10 62 degrees QTcB Int : 397 ms Sinus bradycardia Otherwise normal ECG Confirmed by Brad Benjamin ([id number]), technical editor JUAN MANZO ([id number]) on 07/15/2025 10:32:49 AM Referred By: Confirmed By: Brad Benjamin
--- NOTE | 2025-07-12 21:00 | RAD_ITS ---
RAD/Chest PA and Lateral IMPRESSION: NO ACUTE FINDINGS. Reading [facility]
[2025-07-12 21:03] LABS: Hematocrit 45.1 % (40-54); Hemoglobin 15.4 g/dL (13.0-16.5); Immature Granulocytes Count 0.030 X10^3/uL (0.0-0.0); Mean Corp Hgb Conc 34.1 g/dL (32-36); Mean Corpuscular Volume 89.5 fL (80-94); Mean Platelet Vol. 10.1 fl (6.2-12.0); NRBC Flagged by Analyzer 0 % (0-5); Platelet Count 203 K/mm3 (150-450); RBC Distribution Width CV 12.6 % (11.6-14.6); RBC Distribution Width SD 41.3 fl (35.1-43.9); Red Blood Count 5.04 M/mm3 (4.6-6.2); White Blood Count 6.9 K/mm3 (4.4-11.0)
--- NOTE | 2025-07-12 21:15 | ED.VIS.CHEST ---
HPI History of Present Illness Chief Complaint: Chest Pain Informant: patient Narrative Narrative: Patient is a 55-year-old male with history of kidney stones tobacco use presenting with chest pain. He states he felt fine when he woke up today. He did have [place] food to eat and then took a nap on the couch. He walked outside and suddenly developed pain/tightness in his chest. Points to his epigastric/lower sternum as the area of his pain. States he feels more like an ache right now. He is never anything like this before. Denies associated shortness of breath. Denies any radiation of pain or pain in his back. Denies any cardiac, pulmonary or abdominal history. Not take any medication for symptoms prior to arrival. Denies a history of acid reflux or heartburn. No other complaints or concerns at this time. Denies a family history of any significant cardiac disease especially in young age. PFSH PFS Home Medications ?Medication ?Instructions ?Recorded ?Last Taken ?Type NK 07/12/25 Unknown History Allergy/AdvReac Type Severity Reaction Status Date / Time Penicillins Allergy Unknown Verified 07/12/25 20:21 Surgical History no surgical history Social History Smoking Status: Never smoker [facility] ED Constitutional Constitutional ED: Reports sweats; Denies chills or fever(s) ENT ENT ED: Denies sore throat Cardiovascular Cardiovascular: Reports as per HPI and chest pain; Denies palpitations Respiratory/Chest Respiratory/Chest: Denies cough or dyspnea Gastrointestinal Gastrointestinal: Denies abdominal pain, diarrhea or vomiting Musculoskeletal Musculoskeletal: Denies arthralgias or myalgias Integumentary Denies rash Neurologic Neurologic: Denies headache(s), paresthesias or weakness Psychiatric Psychiatric: Reports anxiety Hematologic/Lymphatic Hematologic/Lymphatic: Denies easy bleeding or easy bruising EXAM Physical Exam Const Vital Signs: 07/12/25 20:24 07/12/25 21:19 07/12/25 21:19 Temperature 98 F Temperature Source Oral Pulse Rate 67 51 L Pulse Rate [Lying] Pulse Rate [Sitting (for 1 minute prior to obtaining)] Respiratory Rate 18 19 H Blood Pressure 181/101 H 164/81 H Blood Pressure [Lying] Blood Pressure [Sitting (for 1 minute prior to obtaining)] Blood Pressure [Standing (for 1 minute prior to obtaining)] Blood Pressure Mean 127 108 Blood Pressure Mean [Lying] Blood Pressure Mean [Sitting (for 1 minute prior to obtaining)] Blood Pressure Mean [Standing (for 1 minute prior to obtaining)] Pulse Ox 97 98 Oxygen Delivery Method Room Air Room Air Room Air 07/12/25 22:00 07/12/25 23:06 07/12/25 23:23 Temperature Temperature Source Pulse Rate 41 L 54 L Pulse Rate [Lying] 50 L Pulse Rate [Sitting (for 1 minute prior to obtaining)] 58 L Respiratory Rate 19 H 17 Blood Pressure 171/98 H 151/88 H Blood Pressure [Lying] 151/94 H Blood Pressure [Sitting (for 1 minute prior to obtaining)] 166/96 H Blood Pressure [Standing (for 1 minute prior to obtaining)] 151/91 H Blood Pressure Mean 122 109 Blood Pressure Mean [Lying] 113 Blood Pressure Mean [Sitting (for 1 minute prior to obtaining)] 119 Blood Pressure Mean [Standing (for 1 minute prior to obtaining)] 111 Pulse Ox 100 99 Oxygen Delivery Method Room Air Room Air Positive well nourished and well developed General Appearance ED: well developed and NAD HEENT Reports moist mucous membranes normocephalic and atraumatic Neck supple and no JVD Chest Wall inspection of chest normal and palpation of chest normal Chest: Negative for tenderness Resp normal respiratory effort and clear to auscultation bilaterally Cardio regular rate, regular rhythm and no murmurs Cardio Narrative: 2+ radial and DP pulses present GI normal to inspection, nondistended, normoactive bowel sounds, soft to palpation and non-tender GI Narrative: Negative Rollins sign. No significant pain with palpation of the epigastric region Back/Spine no CVA tenderness Extremity normal to inspection Neuro oriented x3 and no sensory deficits noted Sensorium / Orientation: awake and alert Motor Exam: strength 5/5 throughout; Negative for general weakness Psych mental status grossly normal Mood & Affect: anxious Skin no rashes or lesions noted and no wounds Heart Score History: Slightly/Non-Suspicious ECG: Normal Age: >45 - <65 years Risk Factors: 1 or 2 Risk Factors Troponin: </= Normal Limit Score: 2 MDM MDM MDM Narrative Medical decision making narrative: Patient is a 55-year-old male present with sudden onset of epigastric/lower sternal chest pain. Had associated diaphoresis upon arrival. Differential includes ACS, pancreatitis, gastritis, biliary colic, pneumothorax. Patient initially given aspirin and morphine with moderate relief of his symptoms. Initial EKG shows sinus bradycardia with some movement artifact but no acute ischemic changes. Repeat EKG performed 30 minutes later shows sinus bradycardia with normal ST segments. Workup including CBC, CMP, lipase and high-sensitivity troponin x 2 was largely normal. Initial-see troponin is less than 6, repeat is 11. Patient given a GI cocktail with complete resolution of his symptoms. Given he does not have ischemic EKG changes, his delta high-sensitivity troponin is 5 and his symptoms were relieved with GI cocktail at this time I feel that he can safely follow-up outpatient. Patient and are agreeable this plan of care. Patient is given return precautions. Encouraged follow-up with his primary care doctor for this. Instructed on using [id number] antacids as needed. He is given return precautions to the emergency room. Lab Data Attestation: I reviewed the patient's lab results. Labs: Laboratory Results - last 24 hr 07/12/25 07/12/25 20:27 22:55 WBC 6.9 RBC 5.04 Hgb 15.4 Hct 45.1 MCV 89.5 MCH 30.6 MCHC 34.1 RDW Std Deviation 41.3 RDW Coeff of Stefan 12.6 Plt Count 203 MPV 10.1 Immature Gran % (Auto) 0.400 Neut % (Auto) 53.3 Lymph % (Auto) 31.1 [place] % (Auto) 11.8 H Eos % (Auto) 2.8 Baso % (Auto) 0.6 Absolute Neuts (auto) 3.7 Absolute Lymphs (auto) 2.14 Nucleated RBC % 0 Sodium 143 Potassium 3.7 Chloride 106 Carbon Dioxide 25.2 Anion Gap 12 BUN 14 Creatinine 1.02 Estim Creat Clear Calc 101.18 Est GFR (MDRD) Non-Af 87 BUN/Creatinine Ratio 13.7 Glucose 107 H Calcium 9.8 Total Bilirubin 0.35 Direct Bilirubin 0.12 AST 33 ALT 39 Alkaline Phosphatase 119 Troponin T High Sens < 6 Troponin T Hi Sens 2 Hr 11 Total Protein 7.7 Albumin 4.6 Globulin 3.1 Lipase 41 Radiography Diagnostic Testing: Clinical Impression(s) from Imaging Studies Chest X-Ray 07/12/25 21:00 IMPRESSION: NO ACUTE FINDINGS. Reading Location: [id number] Chest x-ray?no acute process. Air-fluid levels noted in the stomach. Rhythm Strip Rhythm Strip: Sinus Rhythm Rate: 56 Ectopy: None EKG Initial EKG: Attestation: I personally reviewed and interpreted this EKG as follows: Interpretation: Sinus Bradycardia Comments: Sinus bradycardia rate 56 bpm Normal axis Normal intervals Artifact from movement present but otherwise normal ST segments Follow-up EKG: Attestation: I personally reviewed and interpreted this EKG as follows: Interpretation: Sinus Bradycardia Comments: Sinus bradycardia rate of 50 bpm Normal axis Normal intervals Normal ST segment Discharge Plan Triage Chief Complaint: Chest Pain ED Provider: Neena Hernandez Dx/Rx/DC Orders Clinical Impression: Chest pain, Gastritis Instructions: ED Chest Pain, Uncertain Cause Prescriptions: No Action NK Primary Care Provider: Niurka Marina Referrals: Niurka Marina, [Primary Care Provider] - Activity Restrictions/Additional Instructions: Please follow with your family doctor. At this time your cardiac workup was normal. Your pain was relieved with a GI cocktail. My suspicion is this is more acid reflux or inflammation of your stomach causing it. If you have worsening symptoms, difficulty breathing or feel like you are going to pass out please do not hesitate to return to the emergency room. If you start vomiting blood or having black stools please return the emergency room. Try to adhere to a low acid bland diet for the couple days. You might find taking a daily omeprazole or Pepcid (this is available [id number]) beneficial. For breakthrough symptoms you can try Tums, Mylanta or Pepto-Bismol Print Language: [place] Disposition Disposition: Home, Self Care
[2025-07-12 21:19] VITALS: BP 164/81; PULSE 51; RESP 19; O2SAT 98
[2025-07-12 21:19] LABS: Troponin T High Sensitivity < 6 ng/L (<=22)
[2025-07-12 21:21] LABS: AST(SGOT) 33 U/L (<=37); Alanine Aminotransfer ALT/SGPT 39 U/L (<=46); Albumin, Serum 4.6 g/dL (3.5-5.0); Alkaline Phosphatase 119 U/L (40-129); Anion Gap 12 (5-15); BUN 14 mg/dL (4-19); BUN/Creat Ratio 13.7 RATIO (10-20); Bilirubin, Direct 0.12 mg/dL (0.00-0.30); Calcium,Total 9.8 mg/dL (7.6-11.0); Carbon Dioxide 25.2 mmol/L (21.0-32.0); Chloride 106 mmol/L (98-108); Estimated Creatinine Clearance 101.18 ml/min (50-250); Globulin 3.1 g/dL (2.2-4.2); Glucose 107 mg/dL (70-99); Lipase 41 U/L (13-75); Potassium 3.7 mmol/L (3.3-5.1)
--- OUTSIDE RECORDS SUMMARY | 2025-07-12 21:34 | XMS RPT_ITS | CCD ---
Author Organization [facility] Care Team Providers Care Nuts And Bolts Assembler Name Role Phone NIKKI MONTEZ Primary Care Physician CYRUS SERRANO, DR HARDEN Primary Care Physician CYRUS SERRANO, DR. HARDEN Attending Beverlyabl norma BRIDGES DO, DR. HARDEN Primary Care Beverlyabl norma CASTILLO CASE REPAIRER-DIESEL STATIONARY ENGINEER, MARION Attending Beverlyabl norma SMITH, MARION Referring Sade BRIDGES DO, DR. HARDEN Primary Care Sade BRIDGES DO, DR HARDEN Attending Unavailable CYRUS SERRANO, DR HARDEN Primary Care Unavailable Allergies Allergy Classification Reported Allergen(s) Allergy Type Date of Onset Reaction(s) Facility (3 sources) Penicillins; Translations: [penicillins] Drug allergy Unknown [facility] Medications Current Medications Medication Drug Class(es) Dates Sig (Normalized) Sig (Original) losartan potassium 25 mg oral tablet (1 source) Angiotensin 2 Receptor Edilson Start: 10-03-2024 losartan 25 mg oral tablet Dose : 25 mg = 1 tab(s), Oral, qDay, # 30 tab(s), 1 Refill(s), Pharmacy: [facility]/pharmacy #[id number], 178.5, cm, 10/03/24 8:30:00 EST, Height, kg, 10/03/24 8:30:00 EST, Dosing Weight Start Date: 10/03/24 Status: Ordered sildenafil 100 mg oral tablet (3 sources) Phosphodiesterase 5 Inhibitor Start: 10-03-2024 sildenafil 100 mg oral tablet See Instructions, PRN as needed for erectile dysfunction, 0.5 - 1 tab(s) Oral 60 min prior to sexual activity, # 10 tab(s), 1 Refill(s), Pharmacy: [facility]/pharmacy #[id number], Erectile dysfunction, 178.5, cm, 10/03/24 8:30:00 EST, Height, kg, 10/03/24 8:30:00 EST, Dosing Weight Start Date: 10/03/24 Status: Ordered Start: 03-17-2022 sildenafil 100 mg oral tablet See Instructions, PRN as needed for erectile dysfunction, 0.5 - 1 tab(s) Oral 60 min prior to sexual activity, # 10 tab(s), 1 Refill(s), Pharmacy: [facility]/pharmacy #[id number], Erectile dysfunction, 180.3, cm, 03/17/22 8:56:00 EDT, Height, kg, 03/17/22 8:56:00... Start Date: 03/17/22 Status: Ordered Start: 07-18-2019 sildenafil 100 mg oral tablet See Instructions, PRN as needed for erectile dysfunction, 0.5 - 1 tab(s) Oral 60 min prior to sexual activity, # 10 tab(s), 1 Refill(s), [id number] Erectile dysfunction Start Date: 07/18/19 Status: Ordered Completed/Discontinued Medications Medication Drug Class(es) Dates Sig (Normalized) Sig (Original) acetaminophen 325 mg / HYDROcodone bitartrate 5 mg oral tablet (1 source) Opioid Agonist Start: 12-16-2020 acetaminophen-hyd rocodone 325 mg-5 mg oral tablet Dose = 1 tab(s), Oral, q6h, PRN for pain, tab(s), 0 Refill(s), 102.1 Start Date: 12/16/20 Status: Ordered tamsulosin hydrochloride 0.4 mg oral capsule (1 source) alpha-Adrenergic Edilson Start: 11-17-2020 End: 12-01-2020 tamsulosin 0.4 mg oral capsule Dose : 0.4 mg = 1 cap(s), Oral, qDay, # 14 cap(s), 0 Refill(s), Pharmacy: [facility]/pharmacy #[id number], 180.5, cm, 11/17/20 13:19:00 EST, Height, kg, 11/17/20 13:19:00 EST, Dosing Weight Start Date: 11/17/20 Stop Date: 12/01/20 Status: Ordered Problems Problem Classification Problem Date Documented Da te Episodic/Chronic Abdominal pain (2 sources) Inguinal pain; Translations: [Right sided abdominal pain] 11-17-2020 Episodic Calculus of urinary tract (2 sources) Kidney stone 03-17-2022 Episodic Essential hypertension (2 sources) Hypertensive disorder 03-17-2022 Chronic Gastrointestinal hemorrhage (1 source) Rectal hemorrhage 12-16-2020 Episodic Genitourinary symptoms and ill-defined conditions (1 source) Blood in urine 11-17-2020 Episodic Other and unspecified benign neoplasm (2 sources) Polyp of colon 03-17-2022 Episodic Other male genital disorders (2 sources) Impotence 03-17-2022 Chronic Sprains and strains (1 source) Lower back injury; Translations: [Strain of muscle, fascia and tendon of lower back, subsequent encounter] Episodic Results Test Name Value Interpretation Reference Range Facility .Auto Diffon 10-03-2024 Basophil, Absolute 0.0 10 3/mcL Normal 0.0-0.2 [facility] Comment on above: Performed By: #### A DIFF, CMP, GFR, TSH, ANEU, PSA, LIPID, CBC #### [address] [address] Basophils/100 WBC (Bld) 0.4 % Normal 0.0-2.5 [facility] Comment on above: Performed By: #### A DIFF, CMP, GFR, TSH, ANEU, PSA, LIPID, CBC #### [address] [address] Eosinophil, Absolute 0.1 10 3/mcL Normal 0.0-0.7 [facility] Comment on above: Performed By: #### A DIFF, CMP, GFR, TSH, ANEU, PSA, LIPID, CBC #### [address] [address] Eosinophils/100 WBC (Bld) 2.4 % Normal 0.0-7.0 [facility] Comment on above: Performed By: #### A DIFF, CMP, GFR, TSH, ANEU, PSA, LIPID, CBC #### [address] [address] Lymphocyte, Absolute 1.4 10 3/mcL Normal 0.9-4.3 [facility] Comment on above: Performed By: #### A DIFF, CMP, GFR, TSH, ANEU, PSA, LIPID, CBC #### [address] [address] Lymphocytes/100 WBC (Bld) 27.7 % Normal 20.0-40.0 [facility] Comment on above: Performed By: #### A DIFF, CMP, GFR, TSH, ANEU, PSA, LIPID, CBC #### [address] [address] Monocyte, Absolute 0.6 10 3/mcL Normal 0.1-1.4 [facility] Comment on above: Performed By: #### A DIFF, CMP, GFR, TSH, ANEU, PSA, LIPID, CBC #### [address] [address] Monocytes/100 WBC (Bld) 11.7 % Normal 2.0-13.0 [facility] Comment on above: Performed By: #### A DIFF, CMP, GFR, TSH, ANEU, PSA, LIPID, CBC #### [address] [address] Neutrophils/100 WBC (Bld) 57.8 % Normal 50.0-75.0 [facility] Comment on above: Performed By: #### A DIFF, CMP, GFR, TSH, ANEU, PSA, LIPID, CBC #### [address] [address] .GFRon 10-03-2024 GFR 98 ml/min/1.73sqm Normal [facility] Comment on above: Result Comment: GFR Population mean for , Non- Americans Ages 20-29 = 116 mL/min/1.73 sq.m. Ages 30-39 = 107 mL/min/1.73 sq.m. Ages 40-49 = 99 mL/min/1.73 sq.m. Ages 50-59 = 93 mL/min/1.73 sq.m. Ages 60-69 = 85 mL/min/1.73 sq.m. Ages 70+ = 75 mL/min/1.73 sq.m. Chronic Kidney Disease: Less than 60 mL/min/1.73 square meters End Stage Renal Disease: Less than 15 mL/min/1.73 square meters Performed By: #### A DIFF, CMP, GFR, TSH, ANEU, PSA, LIPID, CBC #### [address] [address] GFR Non- 81 ml/min/1.73sqm Normal [facility] Comment on above: Result Comment: GFR Population mean for , Non- Americans Ages 20-29 = 116 mL/min/1.73 sq.m. Ages 30-39 = 107 mL/min/1.73 sq.m. Ages 40-49 = 99 mL/min/1.73 sq.m. Ages 50-59 = 93 mL/min/1.73 sq.m. Ages 60-69 = 85 mL/min/1.73 sq.m. Ages 70+ = 75 mL/min/1.73 sq.m. Chronic Kidney Disease: Less than 60 mL/min/1.73 square meters End Stage Renal Disease: Less than 15 mL/min/1.73 square meters Performed By: #### A DIFF, CMP, GFR, TSH, ANEU, PSA, LIPID, CBC #### [address] [address] .NEUABSon 10-03-2024 Neutrophil, Absolute 2.9 10 3/mcL Normal 2.3-8.1 [facility] Comment on above: Performed By: #### A DIFF, CMP, GFR, TSH, ANEU, PSA, LIPID, CBC #### [address] [address] CBCon 10-03-2024 Erythrocyte distribution width (RBC) [Ratio] 13.3 % Normal 11.5-15.5 [facility] Comment on above: Performed By: #### A DIFF, CMP, GFR, TSH, ANEU, PSA, LIPID, CBC #### [address] [address] Hematocrit (Bld) [Volume fraction] 45.7 % Normal 40.0-52.0 [facility] Comment on above: Performed By: #### A DIFF, CMP, GFR, TSH, ANEU, PSA, LIPID, CBC #### [address] [address] Hgb 15.2 G/dL Normal 13.0-17.5 [facility] Comment on above: Performed By: #### A DIFF, CMP, GFR, TSH, ANEU, PSA, LIPID, CBC #### [address] [address] MCH (RBC) [Entitic mass] 30.1 pg Normal 27.0-33.0 [facility] Comment on above: Performed By: #### A DIFF, CMP, GFR, TSH, ANEU, PSA, LIPID, CBC #### [place] [address] MCHC 33.3 G/dL Normal 32.0-36.0 [facility] Comment on above: Performed By: #### A DIFF, CMP, GFR, TSH, ANEU, PSA, LIPID, CBC #### [place] [address] MCV (RBC) [Entitic vol] 90.5 fL Normal 81.0-100.0 [facility] Comment on above: Performed By: #### A DIFF, CMP, GFR, TSH, ANEU, PSA, LIPID, CBC #### [address] [address] Platelet 163 10 3/mcL Normal 150-450 [facility] Comment on above: Performed By: #### A DIFF, CMP, GFR, TSH, ANEU, PSA, LIPID, CBC #### [address] [address] Platelet mean volume (Bld) [Entitic vol] 8.6 fL Normal 6.4-10.5 [facility] Comment on above: Performed By: #### A DIFF, CMP, GFR, TSH, ANEU, PSA, LIPID, CBC #### [address] [address] RBC 5.05 10 6/mcL Normal 4.50-6.00 [facility] Comment on above: Performed By: #### A DIFF, CMP, GFR, TSH, ANEU, PSA, LIPID, CBC #### [address] [address] WBC 5.0 10 3/mcL Normal 4.5-10.8 [facility] Comment on above: Performed By: #### A DIFF, CMP, GFR, TSH, ANEU, PSA, LIPID, CBC #### [address] [address] CMPon 10-03-2024 Albumin Level 4.4 G/dL Normal 3.5-5.0 [facility] Comment on above: Performed By: #### A DIFF, CMP, GFR, TSH, ANEU, PSA, LIPID, CBC #### [address] [address] Albumin/Globulin [Mass ratio] 1.5 {ratio} Normal 1.1-2.5 [facility] Comment on above: Performed By: #### A DIFF, CMP, GFR, TSH, ANEU, PSA, LIPID, CBC #### [address] [address] ALP [Catalytic activity/Vol] 120 U/L Normal 40-135 [facility] Comment on above: Performed By: #### A DIFF, CMP, GFR, TSH, ANEU, PSA, LIPID, CBC #### [address] [address] ALT [Catalytic activity/Vol] 58 U/L Normal 16-63 [facility] Comment on above: Performed By: #### A DIFF, CMP, GFR, TSH, ANEU, PSA, LIPID, CBC #### [address] [address] AST [Catalytic activity/Vol] 29 U/L Normal 10-40 [facility] Comment on above: Performed By: #### A DIFF, CMP, GFR, TSH, ANEU, PSA, LIPID, CBC #### [address] [address] Bili Total 0.6 mg/dL Normal 0.2-1.0 [facility] Comment on above: Result Comment: Use of this assay is not recommended for patients undergoing treatment with eltrombopag due to the potential for falsely elevated results. Performed By: #### A DIFF, CMP, GFR, TSH, ANEU, PSA, LIPID, CBC #### [place] [address] BUN/Creatinine Ratio 13 ratio Normal 7-27 [facility] Comment on above: Performed By: #### A DIFF, CMP, GFR, TSH, ANEU, PSA, LIPID, CBC #### [place] [address] Calcium [Mass/Vol] 9.6 mg/dL Normal 8.4-10.2 [facility] Comment on above: Performed By: #### A DIFF, CMP, GFR, TSH, ANEU, PSA, LIPID, CBC #### [place] [address] Chloride [Moles/Vol] 106 mmol/L Normal 98-107 [facility] Comment on above: Performed By: #### A DIFF, CMP, GFR, TSH, ANEU, PSA, LIPID, CBC #### [place] [address] CO2 [Moles/Vol] 30 mmol/L High 22-29 [facility] Comment on above: Performed By: #### A DIFF, CMP, GFR, TSH, ANEU, PSA, LIPID, CBC #### [place] [address] Creatinine [Mass/Vol] 0.97 mg/dL Normal 0.70-1.30 [facility] Comment on above: Result Comment: Test ing performed on Siemens Dimension EXL analyzer using a modified kinetic Sachi technique. Performed By: #### A DIFF, CMP, GFR, TSH, ANEU, PSA, LIPID, CBC #### [place] [address] Electrolyte Balance 7.0 mEq/L Normal 4.0-15.0 [facility] Comment on above: Performed By: #### A DIFF, CMP, GFR, TSH, ANEU, PSA, LIPID, CBC #### [place] [address] Globulin 3.0 G/dL Normal [facility] Comment on above: Performed By: #### A DIFF, CMP, GFR, TSH, ANEU, PSA, LIPID, CBC #### [place] [address] [place], [place] [address] Glucose [Mass/Vol] 107 mg/dL High 70-105 [facility] Comment on above: Performed By: #### A DIFF, CMP, GFR, TSH, ANEU, PSA, LIPID, CBC #### [place] [place], [place] [address] Potassium [Moles/Vol] 4.5 mmol/L Normal 3.5-5.1 [facility] Comment on above: Performed By: #### A DIFF, CMP, GFR, TSH, ANEU, PSA, LIPID, CBC #### [place] [place], [place] [address] Sodium [Moles/Vol] 143 mmol/L Normal 136-145 [facility] Comment on above: Performed By: #### A DIFF, CMP, GFR, TSH, ANEU, PSA, LIPID, CBC #### [address] [address] Total Protein 7.4 G/dL Normal 6.4-8.2 [facility] Comment on above: Performed By: #### A DIFF, CMP, GFR, TSH, ANEU, PSA, LIPID, CBC #### [address] [address] Urea nitrogen [Mass/Vol] 13 mg/dL Normal 7-18 [facility] Comment on above: Performed By: #### A DIFF, CMP, GFR, TSH, ANEU, PSA, LIPID, CBC #### [place] [address] [place], [place] [address] LABORATORYOrdered By: SYSTEM SYSTEM on 10-03-2024 Albumin BCP dye [Mass/Vol] 4.4 G/dL Normal 3.5 - 5.0 G/dL AO ADM SS Albumin/Globulin [Mass ratio] 1.5 {ratio} Normal 1.1 - 2.5 ratio AO ADM SS ALP [Catalytic activity/Vol] 120 U/L Normal 40 - 135 U/L AO ADM SS ALT With P-5'-P [Catalytic activity/Vol] 58 U/L Normal 16 - 63 U/L AO ADM SS AST With P-5'-P [Catalytic activity/Vol] 29 U/L Normal 10 - 40 U/L AO ADM SS Basophils (Bld) [#/Vol] 0.0 103/mcL Normal 0.0 - 0.2 10^3/mcL AO Workflow SS Basophils/100 WBC (Bld) 0.4 % Normal 0.0 - 2.5 % AO Workflow SS Bilirubin [Mass/Vol] 0.6 mg/dL Normal 0.2 - 1.0 mg/dL AO ADM SS Comment on above: Interpretive Data: U se of this assay is not recommended for patients undergoing treatment with eltrombopag due to the potential for falsely elevated results. Calcium [Mass/Vol] 9.6 mg/dL Normal 8.4 - 10. 2 mg/dL AO ADM SS Chloride [Moles/Vol] 106 mmol/L Normal 98 - 107 mmol/L AO ADM SS CO2 [Moles/Vol] 30 mmol/L High 22 - 29 mmol/L AO ADM SS Creatinine [Mass/Vol] 0.97 mg/dL Normal 0.70 - 1.30 mg/dL AO ADM SS Comment on above: Interpretive Data: T esting performed on Siemens Dimension EXL analyzer using a modified kinetic Sachi technique. Electrolyte Balance 7.0 mEq/L Normal 4.0 - 15 .0 mEq/L AO ADM SS Eosinophil, Absolute 0.1 103/mcL Normal 0.0 - 0.7 10^3/mcL AO Workflow SS Eosinophils/100 WBC (Bld) 2.4 % Normal 0.0 - 7.0 % AO Workflow SS Erythrocyte distribution width (RBC) [Ratio] 13.3 % Normal 11.5 - 15.5 % AO Workflow SS GFR/1.73 sq M.predicted among blacks MDRD (S/P/Bld) [Vol rate/Area] 98 ml/min/1.73sqm Invalid Interpretation Code AO Chemistry S Comment on above: Interpretive Data: GFR Population mean for , Non- Americans Ages 20-29 = 116 mL/min/1.73 sq.m. Ages 30-39 = 107 mL/min/1.73 sq.m. Ages 40-49 = 99 mL/min/1.73 sq.m. Ages 50-59 = 93 mL/min/1.73 sq.m. Ages 60-69 = 85 mL/min/1.73 sq.m. Ages 70+ = 75 mL/min/1.73 sq.m. Chronic Kidney Disease: Less than 60 mL/min/1.73 square meters End Stage Renal Disease: Less than 15 mL/min/1.73 square meters GFR/1.73 sq M.predicted among non-blacks MDRD (S/P/Bld) [Vol rate/Area] 81 ml/min/1.73sqm Invalid Interpretation Code AO Chemistry S Comment on above: Interpretive Data: GFR Population mean for , Non- Americans Ages 20-29 = 116 mL/min/1.73 sq.m. Ages 30-39 = 107 mL/min/1.73 sq.m. Ages 40-49 = 99 mL/min/1.73 sq.m. Ages 50-59 = 93 mL/min/1.73 sq.m. Ages 60-69 = 85 mL/min/1.73 sq.m. Ages 70+ = 75 mL/min/1.73 sq.m. Chronic Kidney Disease: Less than 60 mL/min/1.73 square meters End Stage Renal Disease: Less than 15 mL/min/1.73 square meters Globulin 3.0 G/dL Invalid Interpretation Code AO ADM SS Glucose [Mass/Vol] 107 mg/dL High 70 - 105 mg/dL AO ADM SS Hematocrit (Bld) [Volume fraction] 45.7 % Normal 40.0 - 52.0 % AO Workflow SS Hemoglobin (Bld) [Mass/Vol] 15.2 G/dL Normal 13.0 - 17.5 G/dL AO Workflow SS Lymphocytes (Bld) [#/Vol] 1.4 103/mcL Normal 0.9 - 4.3 10^3/mcL AO Workflow SS Lymphocytes/100 WBC (Bld) 27.7 % Normal 20.0 - 40.0 % AO Workflow SS MCH (RBC) [Entitic mass] 30.1 pg Normal 27.0 - 33.0 pg AO Workflow SS MCHC 33.3 G/dL Normal 32.0 - 36.0 G/dL AO Workflow SS MCV (RBC) [Entitic vol] 90.5 fL Normal 81.0 - 100.0 fL AO Workflow SS Monocytes (Bld) [#/Vol] 0.6 103/mcL Normal 0.1 - 1.4 10^3/mcL AO Workflow SS Monocytes/100 WBC (Bld) 11.7 % Normal 2.0 - 13.0 % AO Workflow SS Neutrophils (Bld) [#/Vol] 2.9 103/mcL Normal 2.3 - 8.1 10^3/mcL AO Workflow SS Neutrophils/100 WBC (Bld) 57.8 % Normal 50.0 - 75.0 % AO Workflow SS Platelet mean volume (Bld) [Entitic vol] 8.6 fL Normal 6.4 - 10.5 fL AO Workflow SS Platelets (Bld) [#/Vol] 163 103/mcL Normal 150 - 450 10^3/mcL AO Workflow SS Potassium [Moles/Vol] 4.5 mmol/L Normal 3.5 - 5.1 mmol/L AO ADM SS Prostate specific Ag [Mass/Vol] 1.44 ng/mL Normal 0.00 - 4.00 ng/mL AO ADM SS Protein [Mass/Vol] 7.4 G/dL Normal 6.4 - 8.2 G/dL AO ADM SS RBC (Bld) [#/Vol] 5.05 106/mcL Normal 4.50 - 6.0 0 10^6/mcL AO Workflow SS Sodium [Moles/Vol] 143 mmol/L Normal 136 - 145 mmol/L AO ADM SS TSH Qn 3.00 m[IU]/L Normal 0.36 - 3.74 mcIU/mL AO ADM SS Urea nitrogen [Mass/Vol] 13 mg/dL Normal 7 - 18 mg/dL AO ADM SS Urea nitrogen/Creatinine [Mass ratio] 13 ratio Normal 7 - 27 ratio AO ADM SS WBC (Bld) [#/Vol] 5.0 103/mcL Normal 4.5 - 10.8 10^3/mcL AO Workflow SS LABORATORYOrdered By: Frankie Madrigal on 10-03-2024 Cholesterol [Mass/Vol] 175 mg/dL Normal 0 - 200 mg/dL AO ADM SS Comment on above: Interpretive Data: C holesterol Reference Interval: Less than 200 Desirable 200-239 Borderline high risk 240 and above High risk Cholesterol in HDL [Mass/Vol] 43 mg/dL Normal 40 - 60 mg/dL AO ADM SS Cholesterol in LDL [Mass/Vol] 115 mg/dL Normal 0 - 130 mg/dL AO ADM SS Triglyceride [Mass/Vol] 85 mg/dL Normal 0 - 150 mg/dL AO ADM SS Comment on above: Interpretive Data: T riglyceride Reference Interval: Less than 150 Normal 150-199 Borderline high risk 200-499 High risk 500 or higher Very high risk LIPIDon 10-03-2024 Cholesterol [Mass/Vol] 175 mg/dL Normal 0-200 [facility] Comment on above: Result Comment: Chol esterol Reference Interval: Less than 200 Desirable 200-239 Borderline high risk 240 and above High risk Performed By: #### A DIFF, CMP, GFR, TSH, ANEU, PSA, LIPID, CBC #### [address] [address] Cholesterol in HDL [Mass/Vol] 43 mg/dL Normal 40-60 [facility] Comment on above: Performed By: #### A DIFF, CMP, GFR, TSH, ANEU, PSA, LIPID, CBC #### [address] [address] Cholesterol in LDL [Mass/Vol] 115 mg/dL Normal 0-130 [facility] Comment on above: Performed By: #### A DIFF, CMP, GFR, TSH, ANEU, PSA, LIPID, CBC #### [address] [address] Triglyceride [Mass/Vol] 85 mg/dL Normal 0-150 [facility] Comment on above: Result Comment: Trig lyceride Reference Interval: Less than 150 Normal 150-199 Borderline high risk 200-499 High risk 500 or higher Very high risk Performed By: #### A DIFF, CMP, GFR, TSH, ANEU, PSA, LIPID, CBC #### [address] [address] PSAon 10-03-2024 Prostate Specific Antigen 1.44 ng/mL Normal 0.00-4.00 [facility] Comment on above: Performed By: #### A DIFF, CMP, GFR, TSH, ANEU, PSA, LIPID, CBC #### [address] [address] TSHon 10-03-2024 TSH Qn 3.00 m[IU]/L Normal 0.36-3.74 [facility] Comment on above: Performed By: #### A DIFF, CMP, GFR, TSH, ANEU, PSA, LIPID, CBC #### [address] [address] .Auto Diffon 03-19-2022 Basophil, Absolute 0.00 10 3/mcL Normal 0.00-0.19 [facility] ([place]) Comment on above: Performed By: #### F T4, PSA, ADIFF, TSH, CBC, FT3, GFR, CMP, ANEU, LIPID #### [address] [address] Basophils/100 WBC (Bld) 0.4 % Normal 0.0-2.5 [facility] ([place]) Comment on above: Performed By: #### F T4, PSA, ADIFF, TSH, CBC, FT3, GFR, CMP, ANEU, LIPID #### [address] [address] Eosinophil, Absolute 0.10 10 3/mcL Normal 0.00-0.40 [facility] ([place]) Comment on above: Performed By: #### F T4, PSA, ADIFF, TSH, CBC, FT3, GFR, CMP, ANEU, LIPID #### [address] [address] Eosinophils/100 WBC (Bld) 2.2 % Normal 0.0-7.0 [facility] ([place]) Comment on above: Performed By: #### F T4, PSA, ADIFF, TSH, CBC, FT3, GFR, CMP, ANEU, LIPID #### [address] [address] Lymphocyte, Absolute 1.60 10 3/mcL Normal 0.77-3.85 [facility] ([place]) Comment on above: Performed By: #### F T4, PSA, ADIFF, TSH, CBC, FT3, GFR, CMP, ANEU, LIPID #### [address] [address] Lymphocytes/100 WBC (Bld) 30.9 % Normal 10.0-50.0 [facility] ([place]) Comment on above: Performed By: #### F T4, PSA, ADIFF, TSH, CBC, FT3, GFR, CMP, ANEU, LIPID #### [address] [address] Monocyte, Absolute 0.50 10 3/mcL Normal 0.15-1.00 [facility] ([place]) Comment on above: Performed By: #### F T4, PSA, ADIFF, TSH, CBC, FT3, GFR, CMP, ANEU, LIPID #### [address] [address] Monocytes/100 WBC (Bld) 10.2 % Normal 1.7-13.0 [facility] ([place]) Comment on above: Performed By: #### F T4, PSA, ADIFF, TSH, CBC, FT3, GFR, CMP, ANEU, LIPID #### [address] [address] Neutrophils/100 WBC (Bld) 56.3 % Normal 37.0-80.0 [facility] ([place]) Comment on above: Performed By: #### F T4, PSA, ADIFF, TSH, CBC, FT3, GFR, CMP, ANEU, LIPID #### [address] [address] .GFRon 03-19-2022 GFR Non- 74 ml/min/1.73sqm Normal [facility] ([place]) Comment on above: Result Comment: GFR Population mean for , Non- Americans Ages 20-29 = 116 mL/min/1.73 sq.m. Ages 30-39 = 107 mL/min/1.73 sq.m. Ages 40-49 = 99 mL/min/1.73 sq.m. Ages 50-59 = 93 mL/min/1.73 sq.m. Ages 60-69 = 85 mL/min/1.73 sq.m. Ages 70+ = 75 mL/min/1.73 sq.m. Chronic Kidney Disease: Less than 60 mL/min/1.73 square meters End Stage Renal Disease: Less than 15 mL/min/1.73 square meters Performed By: #### F T4, PSA, ADIFF, TSH, CBC, FT3, GFR, CMP, ANEU, LIPID #### [address] [address] GFR 90 ml/min/1.73sqm Normal [facility] ([place]) Comment on above: Result Comment: GFR Population mean for , Non- Americans Ages 20-29 = 116 mL/min/1.73 sq.m. Ages 30-39 = 107 mL/min/1.73 sq.m. Ages 40-49 = 99 mL/min/1.73 sq.m. Ages 50-59 = 93 mL/min/1.73 sq.m. Ages 60-69 = 85 mL/min/1.73 sq.m. Ages 70+ = 75 mL/min/1.73 sq.m. Chronic Kidney Disease: Less than 60 mL/min/1.73 square meters End Stage Renal Disease: Less than 15 mL/min/1.73 square meters Performed By: #### F T4, PSA, ADIFF, TSH, CBC, FT3, GFR, CMP, ANEU, LIPID #### [address] [address] .NEUABSon 03-19-2022 Neutrophil, Absolute 2.90 10 3/mcL Normal 2.85-6.16 [facility] ([place]) Comment on above: Performed By: #### F T4, PSA, ADIFF, TSH, CBC, FT3, GFR, CMP, ANEU, LIPID #### [address] [address] CBCon 03-19-2022 Erythrocyte distribution width (RBC) [Ratio] 13.5 % Normal 11.5-14.5 [facility] ([place]) Comment on above: Performed By: #### F T4, PSA, ADIFF, TSH, CBC, FT3, GFR, CMP, ANEU, LIPID #### [address] [address] Hematocrit (Bld) [Volume fraction] 45.8 % Normal 42.0-52.0 [facility] ([place]) Comment on above: Performed By: #### F T4, PSA, ADIFF, TSH, CBC, FT3, GFR, CMP, ANEU, LIPID #### [place] [address] Hgb 15.7 G/dL Normal 14.0-18.0 [facility] ([place]) Comment on above: Performed By: #### F T4, PSA, ADIFF, TSH, CBC, FT3, GFR, CMP, ANEU, LIPID #### [place] [address] MCH (RBC) [Entitic mass] 30.3 pg Normal 27.0-31.2 [facility] ([place]) Comment on above: Performed By: #### F T4, PSA, ADIFF, TSH, CBC, FT3, GFR, CMP, ANEU, LIPID #### [place] [address] MCHC 34.2 G/dL Normal 31.8-35.4 [facility] ([place] Comment on above: Performed By: #### F T4, PSA, ADIFF, TSH, CBC, FT3, GFR, CMP, ANEU, LIPID #### [place] [address] MCV (RBC) [Entitic vol] 88.5 fL Normal 80.0-94.0 [facility] ([place]) Comment on above: Performed By: #### F T4, PSA, ADIFF, TSH, CBC, FT3, GFR, CMP, ANEU, LIPID #### [place] [address] Platelet 190 10 3/mcL Normal 130-400 [facility] ([place]) Comment on above: Performed By: #### F T4, PSA, ADIFF, TSH, CBC, FT3, GFR, CMP, ANEU, LIPID #### [place] [id number] Platelet mean volume (Bld) [Entitic vol] 8.7 fL Normal 7.4-10.4 [facility] ([place]) Comment on above: Performed By: #### F T4, PSA, ADIFF, TSH, CBC, FT3, GFR, CMP, ANEU, LIPID #### [address] [address] RBC 5.17 10 6/mcL Normal 4.04-6.13 [facility] ([place]) Comment on above: Performed By: #### F T4, PSA, ADIFF, TSH, CBC, FT3, GFR, CMP, ANEU, LIPID #### [address] [address] WBC 5.10 10 3/mcL Normal 4.60-10.80 [facility] ([place]) Comment on above: Performed By: #### F T4, PSA, ADIFF, TSH, CBC, FT3, GFR, CMP, ANEU, LIPID #### [address] [address] CMPon 03-19-2022 Albumin Level 4.1 G/dL Normal 3.5-5.0 [facility] ([place]) Comment on above: Performed By: #### F T4, PSA, ADIFF, TSH, CBC, FT3, GFR, CMP, ANEU, LIPID #### [address] [address] Albumin/Globulin [Mass ratio] 1.2 {ratio} Normal 1.1-2.5 [facility] ([place]) Comment on above: Performed By: #### F T4, PSA, ADIFF, TSH, CBC, FT3, GFR, CMP, ANEU, LIPID #### [address] [address] ALP [Catalytic activity/Vol] 119 U/L Normal 40-135 [facility] ([place]) Comment on above: Performed By: #### F T4, PSA, ADIFF, TSH, CBC, FT3, GFR, CMP, ANEU, LIPID #### [address] [address] ALT [Catalytic activity/Vol] 62 U/L Normal 16-63 [facility] ([place]) Comment on above: Performed By: #### F T4, PSA, ADIFF, TSH, CBC, FT3, GFR, CMP, ANEU, LIPID #### [address] [address] AST [Catalytic activity/Vol] 36 U/L Normal 10-40 [facility] ([place]) Comment on above: Performed By: #### F T4, PSA, ADIFF, TSH, CBC, FT3, GFR, CMP, ANEU, LIPID #### [address] [address] Bili Total 0.7 mg/dL Normal 0.2-1.0 [facility] ([place]) Comment on above: Result Comment: Use of this assay is not recommended for patients undergoing treatment with eltrombopag due to the potential for falsely elevated results. Performed By: #### F T4, PSA, ADIFF, TSH, CBC, FT3, GFR, CMP, ANEU, LIPID #### [address] [address] BUN/Creatinine Ratio 14 ratio Normal 7-27 [facility] ([place]) Comment on above: Performed By: #### F T4, PSA, ADIFF, TSH, CBC, FT3, GFR, CMP, ANEU, LIPID #### [address] [address] Calcium [Mass/Vol] 9.4 mg/dL Normal 8.4-10.2 [facility] ([place]) Comment on above: Performed By: #### F T4, PSA, ADIFF, TSH, CBC, FT3, GFR, CMP, ANEU, LIPID #### [address] [address] Chloride [Moles/Vol] 105 mmol/L Normal 98-107 [facility] ([place]) Comment on above: Performed By: #### F T4, PSA, ADIFF, TSH, CBC, FT3, GFR, CMP, ANEU, LIPID #### [address] [address] CO2 [Moles/Vol] 31 mmol/L High 22-29 [facility] ([place]) Comment on above: Performed By: #### F T4, PSA, ADIFF, TSH, CBC, FT3, GFR, CMP, ANEU, LIPID #### [address] [address] Creatinine [Mass/Vol] 1.05 mg/dL Normal 0.70-1.30 [facility] ([place]) Comment on above: Performed By: #### F T4, PSA, ADIFF, TSH, CBC, FT3, GFR, CMP, ANEU, LIPID #### [address] [address] Electrolyte Balance 6.0 mEq/L Normal 4.0-15.0 [facility] ([place]) Comment on above: Performed By: #### F T4, PSA, ADIFF, TSH, CBC, FT3, GFR, CMP, ANEU, LIPID #### [address] [address] Globulin 3.5 G/dL Normal [facility] ([place]) Comment on above: Performed By: #### F T4, PSA, ADIFF, TSH, CBC, FT3, GFR, CMP, ANEU, LIPID #### [address] [address] Glucose [Mass/Vol] 102 mg/dL Normal 70-105 [facility] ([place]) Comment on above: Performed By: #### F T4, PSA, ADIFF, TSH, CBC, FT3, GFR, CMP, ANEU, LIPID #### [address] [address] Potassium [Moles/Vol] 4.5 mmol/L Normal 3.5-5.1 [facility] ([place]) Comment on above: Performed By: #### F T4, PSA, ADIFF, TSH, CBC, FT3, GFR, CMP, ANEU, LIPID #### [address] [address] Sodium [Moles/Vol] 142 mmol/L Normal 136-145 [facility] ([place]) Comment on above: Performed By: #### F T4, PSA, ADIFF, TSH, CBC, FT3, GFR, CMP, ANEU, LIPID #### [address] [address] Total Protein 7.6 G/dL Normal 6.4-8.2 [facility] ([place]) Comment on above: Performed By: #### F T4, PSA, ADIFF, TSH, CBC, FT3, GFR, CMP, ANEU, LIPID #### [address] [address] Urea nitrogen [Mass/Vol] 15 mg/dL Normal 7-18 [facility] ([place]) Comment on above: Performed By: #### F T4, PSA, ADIFF, TSH, CBC, FT3, GFR, CMP, ANEU, LIPID #### [address] [address] FT3on 03-19-2022 Free T3 [Mass/Vol] 3.73 pg/mL Normal 2.30-4.00 [facility] ([place]) Comment on above: Performed By: #### F T4, PSA, ADIFF, TSH, CBC, FT3, GFR, CMP, ANEU, LIPID #### [address] [address] FT4on 03-19-2022 Free T4 [Mass/Vol] 1.10 ng/dL Normal 0.76-1.46 [facility] ([place]) Comment on above: Performed By: #### F T4, PSA, ADIFF, TSH, CBC, FT3, GFR, CMP, ANEU, LIPID #### [address] [address] LABORATORYOrdered By: Alicja Barrios on 03-19-2022 Albumin BCP dye [Mass/Vol] 4.1 G/dL Invalid Interpretation Code 3.5 - 5.0 G/dL AO ADM SS Albumin/Globulin [Mass ratio] 1.2 {ratio} Invalid Interpretation Code 1.1 - 2.5 ratio AO ADM SS ALP [Catalytic activity/Vol] 119 U/L Invalid Interpretation Code 40 - 135 U/L AO ADM SS ALT With P-5'-P [Catalytic activity/Vol] 62 U/L Invalid Interpretation Code 16 - 63 U/L AO ADM SS AST With P-5'-P [Catalytic activity/Vol] 36 U/L Invalid Interpretation Code 10 - 40 U/L AO ADM SS Basophil, Absolute 0.00 103/mcL Invalid Interpretation Code 0.00 - 0.19 10^3/mcL AO Auto Heme SS Basophils/100 WBC (Bld) 0.4 % Invalid Interpretation Code 0.0 - 2.5 % AO Auto Heme SS Bilirubin [Mass/Vol] 0.7 mg/dL Invalid Interpretation Code 0.2 - 1.0 mg/dL AO ADM SS Calcium [Mass/Vol] 9.4 mg/dL Invalid Interpretation Code 8.4 - 10.2 mg/dL AO ADM SS Chloride [Moles/Vol] 105 mmol/L Invalid Interpretation Code 98 - 107 mmol/L AO ADM SS Cholesterol [Mass/Vol] 191 mg/dL Invalid Interpretation Code 0 - 200 mg/dL AO ADM SS Cholesterol in HDL [Mass/Vol] 39 mg/dL Invalid Interpretation Code 40 - 60 mg/dL AO ADM SS Cholesterol in LDL [Mass/Vol] 135 mg/dL Invalid Interpretation Code 0 - 130 mg/dL AO ADM SS CO2 [Moles/Vol] 31 mmol/L Invalid Interpretation Code 22 - 29 mmol/L AO ADM SS Creatinine [Mass/Vol] 1.05 mg/dL Invalid Interpretation Code 0.70 - 1.30 mg/dL AO ADM SS Electrolyte Balance 6.0 mEq/L Invalid Interpretation Code 4.0 - 15.0 mEq/L AO ADM SS Eosinophil, Absolute 0.10 103/mcL Invalid Interpretation Code 0.00 - 0.40 10^3/mcL AO Auto Heme SS Eosinophils/100 WBC (Bld) 2.2 % Invalid Interpretation Code 0.0 - 7.0 % AO Auto Heme SS Erythrocyte distribution width (RBC) [Ratio] 13.5 % Invalid Interpretation Code 11.5 - 14.5 % AO Auto Heme SS Free T3 [Mass/Vol] 3.73 pg/mL Invalid Interpretation Code 2.30 - 4.00 pg/mL AO ADM SS Free T4 [Mass/Vol] 1.10 ng/dL Invalid Interpretation Code 0.76 - 1.46 ng/dL AO ADM SS Globulin 3.5 G/dL Invalid Interpretation Code AO ADM SS Glucose [Mass/Vol] 102 mg/dL Invalid Interpretation Code 70 - 105 mg/dL AO ADM SS Hematocrit (Bld) [Volume fraction] 45.8 % Invalid Interpretation Code 42.0 - 52.0 % AO Auto Heme SS Hemoglobin (Bld) [Mass/Vol] 15.7 G/dL Invalid Interpretation Code 14.0 - 18.0 G/dL AO Auto Heme SS Lymphocyte, Absolute 1.60 103/mcL Invalid Interpretation Code 0.77 - 3.85 10^3/mcL AO Auto Heme SS Lymphocytes/100 WBC (Bld) 30.9 % Invalid Interpretation Code 10.0 - 50.0 % AO Auto Heme SS MCH (RBC) [Entitic mass] 30.3 pg Invalid Interpretation Code 27.0 - 31.2 pg AO Auto Heme SS MCHC (RBC) [Mass/Vol] 34.2 G/dL Invalid Interpretation Code 31.8 - 35.4 G/dL AO Auto Heme SS MCV (RBC) [Entitic vol] 88.5 fL Invalid Interpretation Code 80.0 - 94.0 fL AO Auto Heme SS Monocyte, Absolute 0.50 103/mcL Invalid Interpretation Code 0.15 - 1.00 10^3/mcL AO Auto Heme SS Monocytes/100 WBC (Bld) 10.2 % Invalid Interpretation Code 1.7 - 13.0 % AO Auto Heme SS Neutrophil, Absolute 2.90 103/mcL Invalid Interpretation Code 2.85 - 6.16 10^3/mcL AO Auto Heme SS Neutrophils/100 WBC (Bld) 56.3 % Invalid Interpretation Code 37.0 - 80.0 % AO Auto Heme SS Platelet mean volume (Bld) [Entitic vol] 8.7 fL Invalid Interpretation Code 7.4 - 10.4 fL AO Auto Heme SS Platelets (Bld) [#/Vol] 190 103/mcL Invalid Interpretation Code 130 - 400 10^3/mcL AO Auto Heme SS Potassium [Moles/Vol] 4.5 mmol/L Invalid Interpretation Code 3.5 - 5.1 mmol/L AO ADM SS Prostate specific Ag [Mass/Vol] 1.16 ng/mL Invalid Interpretation Code 0.00 - 4.00 ng/mL AO ADM SS Protein [Mass/Vol] 7.6 G/dL Invalid Interpretation Code 6.4 - 8.2 G/dL AO ADM SS RBC (Bld) [#/Vol] 5.17 106/mcL Invalid Interpretation Code 4.04 - 6.13 10^6/mcL AO Auto Heme SS Sodium [Moles/Vol] 142 mmol/L Invalid Interpretation Code 136 - 145 mmol/L AO ADM SS Triglyceride [Mass/Vol] 87 mg/dL Invalid Interpretation Code 0 - 150 mg/dL AO ADM SS TSH Qn 1.19 m[IU]/L Invalid Interpretation Code 0.36 - 3.74 mcIU/mL AO ADM SS Urea nitrogen [Mass/Vol] 15 mg/dL Invalid Interpretation Code 7 - 18 mg/dL AO ADM SS Urea nitrogen/Creatinine [Mass ratio] 14 ratio Invalid Interpretation Code 7 - 27 ratio AO ADM SS WBC (Bld) [#/Vol] 5.10 103/mcL Invalid Interpretation Code 4.60 - 10.80 10^3/mcL AO Auto Heme SS LABORATORYOrdered By: SYSTEM SYSTEM on 03-19-2022 GFR 90 ml/min/1.73sqm Invalid Interpretation Code AO Chemistry S GFR Non- 74 ml/min/1.73sqm Invalid Interpretation Code AO Chemistry S LIPIDon 03-19-2022 Cholesterol [Mass/Vol] 191 mg/dL Normal 0-200 [facility] ([place]) Comment on above: Result Comment: Chol esterol Reference Interval: Less than 200 Desirable 200-239 Borderline high risk 240 and above High risk Performed By: #### F T4, PSA, ADIFF, TSH, CBC, FT3, GFR, CMP, ANEU, LIPID #### [address] [address] Cholesterol in HDL [Mass/Vol] 39 mg/dL Low 40-60 [facility] ([place]) Comment on above: Performed By: #### F T4, PSA, ADIFF, TSH, CBC, FT3, GFR, CMP, ANEU, LIPID #### [address] [address] Cholesterol in LDL [Mass/Vol] 135 mg/dL High 0-130 [facility] ([place]) Comment on above: Performed By: #### F T4, PSA, ADIFF, TSH, CBC, FT3, GFR, CMP, ANEU, LIPID #### [address] [address] Triglyceride [Mass/Vol] 87 mg/dL Normal 0-150 [facility] ([place]) Comment on above: Result Comment: Trig lyceride Reference Interval: Less than 150 Normal 150-199 Borderline high risk 200-499 High risk 500 or higher Very high risk Performed By: #### F T4, PSA, ADIFF, TSH, CBC, FT3, GFR, CMP, ANEU, LIPID #### [address] [address] PSAon 03-19-2022 Prostate Specific Antigen 1.16 ng/mL Normal 0.00-4.00 [facility] ([place]) Comment on above: Performed By: #### F T4, PSA, ADIFF, TSH, CBC, FT3, GFR, CMP, ANEU, LIPID #### [address] [place], [place] [address] TSHon 03-19-2022 TSH Qn 1.19 m[IU]/L Normal 0.36-3.74 [facility] ([place]) Comment on above: Performed By: #### F T4, PSA, ADIFF, TSH, CBC, FT3, GFR, CMP, ANEU, LIPID #### [address] [place], [place] [address] Established Visit (Gastroent erology)on 02-01-2021 Established Visit (Gastroenterology) Diagnoses/Problems Assessed Continuous RUQ abdominal pain (789.01) (R10.11) Hemorrhoids (455.6) (K64.9) Gastritis, chronic (535.10) (K29.50) Orders Continuous RUQ abdominal pain Continue: Dicyclomine HCl - 20 MG Oral Tablet; TAKE 1 TABLET 30 MINUTES BEFORE MEALS AND BEDTIME FOR BOWEL SPASM Rx By: Henrietta Tang; Dispense: 25 Days ; #:120 Tablet; Refill: 11;For: Continuous RUQ abdominal pain; DARLIN = N; Verified Transmission to [id number]; Last Updated By: Latosha Stout; 02/01/2021 9:48:47 AM Gastritis, chronic Start: Omeprazole 20 MG Oral Capsule Delayed Release; TAKE 1 CAPSULE DAILY EVERY MORNING BEFORE BREAKFAST Rx By: Henrietta Tang; Dispense: 30 Days ; #:30 Capsule; Refill: 11;For: Gastritis, chronic; DARLIN = N; Verified Transmission to [facility] #[id number]; Last Updated By: Gerald Mcfadden; 02/01/2021 2:27:11 PM Patient Discussion/Summary 1. A telemed visit using ZOOM was completed. 2. Results of recent abdominal ultrasound, EGD and colonoscopy were reviewed with patient. 3. Begin Omeprazole (Prilosec) 20 mg once daily. Take 30 minutes before breakfast. A prescription was sent to your pharmacy. This medication is for gastritis/heartburn. 4. Lifestyle changes to help alleviate heartburn/reflux were discussed. These include avoiding spicy and greasy foods, tomato based products, mint and caffeine. Alcohol and smoking should be avoided. Patient should keep at least 3 hours between eating and going to sleep. Being of a normal weight helps decrease heartburn symptoms. 5. Continue Dicyclomine 20 mg 30 minutes before meals and bedtime as needed for bowel spasms/cramping/pain. 6. Treatment for hemorrhoids includes medication with hydrocortisone (Preparation H), keeping the area clean and dry, eating a high-fiber diet, avoiding straining when moving her bowels, or sitting in a sitz bath for 10-20 minutes 2-4 times a day. 7. It is medically recommended that you stop all tobacco products. There are several options available to you to assist in quitting. He can try txhu-moi-atlmtdp nicotine patches or gum. He can also speak with your primary care physician about medication options. 8. Begin using one heaping tablespoon of Benefiber in 8 ounces of water daily by mixing and drinking quickly. This product is uylp-rqx-rvtxlbc and will help maintain soft/regular stools. 9. Consider HIDA scan if right upper quadrant abdominal pain and nausea persists despite PPI (Omeprazole) therapy. 10. Follow-up 1 year or sooner if needed. Provider Impressions 1. Continuous right upper quadrant abdominal pain, worsening after meals 2. Chronic gastritis 3. Rectal bleeding secondary to hemorrhoids 4. Tobacco use Chief Complaint An interactive audio and video telecommunication system which permits real time communications between the patient (at the originating site) and provider (at the distant site) was utilized to provide this telehealth service. Verbal consent was requested and obtained from [facility] on this date, 02/01/2021 10:00 AM , for a telehealth visit. A virtual visit using ZOOM was completed for this encounter. CHIEF COMPLAINT: Follow-up EGD, colonoscopy and abdominal ultrasound History of Present [id number] - Year old male presents today via ZOOM for telemed visit and follow-up of recent abdominal ultrasound, EGD and colonoscopy for work-up of continuous right upper quadrant abdominal pain, unintentional weight loss and rectal bleeding. Abdominal ultrasound on 12/25/2020 demonstrated fatty infiltration of the liver, otherwise no acute findings. Liver function studies on 12/16/2020 were normal. EGD on [address] Lowry demonstrated a normal esophagus, normal stomach and normal examined duodenum with biopsies of the gastric antrum consistent with mild, chronic H.pylori negative gastritis. Colonoscopy on 2021 demonstrated internal hemorrhoids and one 1 mm polyp in the cecum with biopsy showing polypoid fragment of benign colonic mucosa with intramucosal lymphoid aggregate. Recall colonoscopy is due in 10 years. Patient reports continued right upper quadrant abdominal pain rated 5/10 in severity. This is cramping in nature and occurs all day but is worse after meals. It does not radiate. It is occasionally associated with mild nausea but no vomiting. He denies hearbturn or dysphagia. He is not currently on any medications for history of gastritis. He reports regular bowel habits daily and denies diarrhea or constipation. He continues to experience intermittent bright red rectal bleeding with bowel movements. He is taking Dicyclomine 20 mg before meals but only finds minimal relief of his abdominal pain from it. Review of Systems Const: Denies fatigue, fever or weight loss. CV: Denies chest pain, pacemaker, palpitations and valvular heart disease. Resp: Denies cough, sleep apnea, SOB and snoring. GI: Denies symptoms other than stated above. Musculo: Denies joint pain and muscle pain. Skin: Denies hives and rash. Neuro: Denies seizures and stroke. Psych: Denies anxiety and depression. Endocrine: Denies intolerance to cold, hot flashes and impaired glucose tolerance. Taras/Lymph: Denies anemia, blood transfusions, chemotherapy, enlarged lymph nodes and radiation treatment of any kind. Active Problems Problems Continuous RUQ abdominal pain (789.01) (R10.11) Gastritis, chronic (535.10) (K29.50) Hemorrhoids (455.6) (K64.9) Rectal hemorrhage (569.3) (K62.5) Weight loss, unintentional (783.21) (R63.4) Past Medical History Problems History of hematuria (V13.09) (Z87.448) History of Kidney stone on left side (592.0) (N20.0) Surgical History Problems History of Esophagogastroduodenoscopy History of Medial collateral ligament repair History of Renal lithotripsy Family History Mother Family history of Alive and well No family history of Colon Cancer Father Family history of Child Family history of Alive and well No family history of Colon Cancer Sibling Family history of Alive and well No family history of Colon Cancer Social History Problems Drinks coffee Marijuana Never smoked cigarettes (V49.89) (Z78.9) No alcohol use Uses chewing tobacco Allergies Medication Penicillins Cross Reactors Recorded By: Latosha Stout; 12/21/2020 10:50:03 AM Current Meds Medication NameInstruction Dicyclomine HCl - 20 MG Oral TabletTAKE 1 TABLET 30 MINUTES BEFORE MEALS AND BEDTIME FOR BOWEL SPASM Vitals Vital Signs Recorded: 01Feb2021 09:47AM Height5 ft 11 in [id number] lb BMI Bpjobcvehn21.43 BSA Calculated2.16 Physical Exam PHYSICAL EXAM LIMITED DUE TO TELEPHONE ENCOUNTER. Constitutional: Patient alert and oriented x3. Pleasant and cooperative. No conversational dyspnea. Appears healthy and well-developed and in no apparent distress. Results/Data 1.Laboratory studies 12/16/2020: WBC 5.8, HGB 14.6, HCT 42.0, MCV 88.3, PLT 178, glucose 105, NA 141, K 4.4, CL 014, CO2 30, BUN 12, Creat 1.03, calcium 9.2, total bili 0.5, alk phos 105, AST 26, ALT 54, cholesterol 156, triglycerides 88, HDL 39, LDL 99, PSA 1.45 2. Abdominal ultrasound on 12/25/2020 demonstrated fatty infiltration of the liver, otherwise no acute findings. Liver function studies on 12/16/2020 were normal. 3. EGD on [address] Lowry demonstrated a normal esophagus, normal stomach and normal examined duodenum with biopsies of the gastric antrum consistent with mild, chronic H.pylori negative gastritis. 4. Colonoscopy on 2021 demonstrated internal hemorrhoids and one 1 mm polyp in the cecum with biopsy showing polypoid fragment of benign colonic mucosa with intramucosal lymphoid aggregate. Recall colonoscopy is due in 10 year (December 2030). Signatures Electronically signed by : LUIS Massey; Feb 01 2021 2:31PM EST (Author) Normal [facility] Surgical Pathology Depar tmenton 2021 [facility] Surgical Pathology Department Name [facility] Pathologist: SUPA BARRIGA, Date of Procedure: 2021 Date Received: 01/09/2021 Date Reported 01/14/2021 Submitting Physician: RAFAELA LOWRY DO Location: [facility] Copy To/Referring/Attending: DERECK BRIDGES D.O. Other External # FINAL DIAGNOSIS A. GASTRIC ANTRUM BIOPSY: - GASTRIC MUCOSA WITH MILD CHRONIC INFLAMMATION. - NO HELICOBACTER PYLORI ORGANISMS IDENTIFIED ON H AND E STAIN. B. CECAL POLYP, BIOPSY: - POLYPOID FRAGMENT OF BENIGN COLONIC MUCOSA WITH INTRAMUCOSAL LYMPHOID AGGREGATE. NOTE: Multiple deeper levels examined. Interpretation was performed at:[facility], Department of Pathology, [address] [place] [address] Electronically Signed Out By SUPA BARRIGA DO/MIREYA By the signature on this report, the individual or group listed as making the Final Interpretation/Diagnosis certifies that they have reviewed this case. Clinical History: RUQ pain rectal bleeding unintentional weight loss Specimens Submitted As: A: GASTRIC ANTRUM B: CECAL POLYP Gross Description: A: Received in formalin, labeled with the patient's name and hospital number and A gastric antrum, is a fragment of dunn, soft tissue measuring 0.3 x 0.3 x 0.2 cm. The specimen is submitted in toto in one cassette. SBS B: Received in formalin, labeled with the patient's name and hospital number and B cecal polyp, is a fragment of dunn, soft tissue measuring 0.3 x 0.2 x 0.1 cm. The specimen is submitted in toto in one cassette. SBS ssn/01/11/2021 [facility] Department of Pathology [address] [place] [address] Normal [facility] Comment on above: Performed By: #### [facility] #### [facility] Surgical Pathology Department [address] [place] [address] CORONAVIRUS 2019, SCREEN ASY MPTOMATICon 01-06-2021 SARS-CoV-2 (COVID-19) RNA BRIAN+probe Ql (Unsp spec) Not detected Normal Not Detected [facility] Comment on above: Result Comment: . This assay is designed to detect the N, ORF1ab and/or S genes of SARS-CoV-2 via nucleic acid amplification. A Negative (NOT DETECTED) result does not preclude 2019-nCoV infection since the adequacy of sample collection and/or low viral burden may result in presence of viral nucleic acids below the clinical sensitivity of this test method. Negative (NOT DETECTED) result should not be used as the sole basis for treatment or other patient management decisions. Rather negative results should be combined with clinical observations, patient history, and epidemiological information to make patient management decisions. Fact sheet for providers: https://www.fda.gov/media/724471/download Fact sheet for patients: https://www.fda.gov/media/742793/download This test has received FDA Emergency Use Authorization (EUA) and has been verified by [facility] ([facility]). This test is only authorized for the duration of time that circumstances exist to justify the authorization of the emergency use of in vitro diagnostic tests for the detection of SARS-CoV-2 virus and/or diagnosis of COVID-19 infection under section 564(b)(1) of the Act, 21 U.S.C. 360bbb-3(b)(1), unless the authorization is terminated or revoked sooner. [facility] is certified under CLIA-88 as qualified to perform high complexity testing. Testing is performed in the [facility] laboratories located at [address] [place] [address]. Performed By: #### C [facility] #### [address] [place] [address] Covid 19 Resultson 1 SARS-CoV-2 (COVID-19) RNA BRIAN+probe Ql (Unsp spec) NEGATIVE COVID-19 Test Coronaviruses are common world-wide and are the cause of many common colds. SARS-COV2 is a new coronavirus that began circulating worldwide in 2019 so we are calling it COVID-19. It has been estimated that four out of five patients with COVID-19 will recover at home without the need for medical attention. Symptoms of COVID-19 include cough, fever, shortness of breath, loss of taste or smell and other flu-like symptoms including chills, sore muscles, sore throat, and headache. Severe illness is more common in older people and people with other health problems such as high blood pressure, obesity, and immune system problems. If the test is positive, you have COVID-19. You will be contacted by the ordering physicians office and instructed to remain on home isolation, in accordance with CDC guidelines. You may also be contacted by the [facility] to see if any of your close contacts may have been exposed to the virus and need to quarantine. If the test is negative, you likely do not have COVID-19 at this time, but you still may have a different illness that can spread to other people (like Influenza, or the Flu) and could still be at risk for getting COVID-19. We recommend that you stay away from other people to limit the spread of illness until your symptoms are improving and you are fever-free for 24 hours without the use of fever lowering medications such as acetaminophen or ibuprofen. No test is 100% accurate so if you are still concerned you may have COVID-19, talk to your doctor about the need to continue to stay away from others. Medicines Acetaminophen (Tylenol and others) is generally safe. Anti-inflammatory medications, such as Ibuprofen (Advil or Motrin) or Naproxen (Aleve) can also be used. Nhxr-vdo-xqajlwl cough and cold medicines can be used according to the instructions on the package. Some gdwb-ten-okekuqk medicines also contain acetaminophen. Make sure you are not taking more than your recommended dose For those not hospitalized, there is no specific treatment available for this illness. Antibiotics do not treat Coronaviruses. Follow-Up Follow up with your doctor by scheduling a virtual visit or consider follow-up at one of our urgent care fever clinics. If you are having difficulty breathing, or are very weak and having difficulty standing, this is a medical emergency. Call 911 or have someone take you to the nearest emergency room immediately. If possible, wear a facemask. Additional guidance from the CDC for patients who tested POSITIVE for COVID-19 How to isolate: Isolate yourself in a specific room at home and limit your contact with others. Use a separate bathroom from other members of the household, when possible. Leave home only to get essential medical care. Do not go to work, school or public areas. Avoid using public transportation, ride-sharing, or taxis. Restrict contact with pets and other animals. If you must care for your pet or be around animals while you are sick, wash your hands before and after your interaction and wear a facemask. Make sure that shared spaces in the home have good airflow, such as by an air conditioner or an opened window, weather permitting. Personal Hygiene Procedures: Wear a face mask when in the same room as other people or pets. If a face mask interferes with your breathing, others should wear a mask when sharing space with you. Frequent hand-washing: wash your hands with soap and water for at least 20 seconds. If soap and water are not available, use alcohol-based hand men's designer. Avoid touching your eyes, nose, and mouth with unwashed hands. Household Hygiene Procedures: Avoid sharing personal household items such as dishes, glassware, cups, eating utensils, towels or bedding with other people or pets in your home. After use, these items should be washed with soap and hot water. Disinfect all high-touch surfaces every day with antibacterial cleaning solutions such as Lysol wipes, bleach, cleansers, etc. High-touch surfaces include tabletops, doorknobs, bathroom fixtures, toilets, phones, keyboards, tablets and bedside tables. Immediately clean any surfaces that may have blood, poop or body fluids on them, using antibacterial cleaning solutions such as Lysol wipes, bleach, cleansers, etc. If clothing or bedding come into contact with blood, poop or body fluids, they should be washed immediately. Follow the directions on the laundry detergent and clothing labels but hot water is recommended when possible. Stopping home isolation precautions: If possible, consult your doctor before stopping home isolation precautions. According to the CDC, you can discontinue home isolation precautions when you have met both of these criteria: Your fever and respiratory symptoms have been gone for 24 hours without the use of any medicines like ibuprofen (Motrin) (more content not included)... Normal [facility] CORONAVIRUS 2019, SCREEN ASY MPTOMATICon 01-05-2021 Lab Specimen Source Nasal, Nasopharyngeal Normal [facility] Comment on above: Performed By: #### C OVSC #### [facility] [address] [place] [address] Initial Visit (Gastroenterol ogy)on 12-21-2020 Initial Visit (Gastroenterology) Diagnoses/Problems Assessed Continuous RUQ abdominal pain (789.01) (R10.11) Rectal hemorrhage (569.3) (K62.5) Hemorrhoids (455.6) (K64.9) Weight loss, unintentional (783.21) (R63.4) Orders Continuous RUQ abdominal pain Start: Dicyclomine HCl - 20 MG Oral Tablet; TAKE 1 TABLET 30 MINUTES BEFORE MEALS AND BEDTIME FOR BOWEL SPASM Rx By: Henrietta Tang; Dispense: 25 Days ; #:120 Tablet; Refill: 11;For: Continuous RUQ abdominal pain; DARLIN = N; Sent To: [id number] Continuous RUQ abdominal pain, Hemorrhoids, Rectal hemorrhage, Weight loss, unintentional Colonoscopy; Status:Hold For - Scheduling; Requested for:21Dec2020; Perform:[facility]; Due:21Mar2021;Ordered; Stat; For:Continuous RUQ abdominal pain, Hemorrhoids, Rectal hemorrhage, Weight loss, unintentional; Ordered By:Henrietta Tagn; Patient competent to provide consent? : Yes-pt mentally competent to provide consent Continuous RUQ abdominal pain, Rectal hemorrhage Endoscopy - Upper GI; Status:Hold For - Scheduling; Requested for:21Dec2020; Perform:[facility]; Due:21Mar2021;Ordered; Stat; For:Continuous RUQ abdominal pain, Rectal hemorrhage; Ordered By:Henrietta Tang; Patient competent to provide consent? : Yes-pt mentally competent to provide consent Continuous RUQ abdominal pain, Rectal hemorrhage, Weight loss, unintentional Ultrasound Abdomen Complete; Status:Hold For - Scheduling; Requested for:21Dec2020; Perform:[facility]; Due:21Mar2021;Ordered; For:Continuous RUQ abdominal pain, Rectal hemorrhage, Weight loss, unintentional; Ordered By:Henrietta Tang; Radiologist to Determine Optimal Study : Y What are the patient's signs and symptoms? : Right upper quadrant abdominal pain, rectal bleeing, unintentional weight loss SocHx: Never smoked cigarettes Tobacco Use Screening; Status:Complete; Done: 21Dec2020 Perform:Not Applicable;Ordered; For:SocHx: Never smoked cigarettes; Ordered By:Latosha Stout; SocHx: Uses chewing tobacco Tobacco Use Screening; Status:Complete; Done: 21Dec2020 Perform:Not Applicable;Ordered; For:SocHx: Uses chewing tobacco; Ordered By:Latosha Stout; Patient Discussion/Summary 1. A telemed visit using ZOOM was completed. 2. Obtain abdominal ultrasound complete. Patient wants scheduled at [facility]. 3. The differential diagnosis of the patient?s symptoms was discussed, and a colonoscopy and upper endoscopy were recommended. The procedures and sedation were discussed including but not limited to risks of bleeding, perforation, missed polyps, damage to other organs, and reaction to medication including cardiopulmonary events. All of the patient?s questions were answered. The patient was instructed on not being able to drive the day of the exam after being sedated. 4. The patient appears medically stable for sedation and endoscopy. 5. Begin Dicyclomine 20 mg 30 minutes before meals and bedtime as needed for bowel spasms/cramping/pain. A prescription was sent to your pharmacy. 6. Treatment for hemorrhoids includes medication with hydrocortisone (Preparation H), keeping the area clean and dry, eating a high-fiber diet, avoiding straining when moving her bowels, or sitting in a sitz bath for 10-20 minutes 2-4 times a day. 7. It is medically recommended that you stop all tobacco products. There are several options available to you to assist in quitting. He can try oryh-zan-qadqvkj nicotine patches or gum. He can also speak with your primary care physician about medication options. 8. Follow-up office visit 4 weeks after EGD/colonoscopy completed. Provider Impressions 1. Continuous right upper quadrant abdominal pain, worsening after meals 2. Unintentional weight loss of 12 pounds in 2 weeks 3. Rectal bleeding 4. History of hemorrhoids 5. Tobacco use Chief Complaint An interactive audio and video telecommunication system which permits real time communications between the patient (at the originating site) and provider (at the distant site) was utilized to provide this telehealth service. Verbal consent was requested and obtained from GRETCHEN AVILES on this date, 12/21/2020 11:00 AM , for a telehealth visit. A virtual visit using ZOOM was completed for this encounter. CHIEF COMPLAINT: Abdominal pain, rectal bleeding History of Present [id number] - Year old male presents today via ZOOM for telemed visit; he is accompanied by his , Barbara. Patient reports right upper quadrant abdominal pain beginning in October 2020. This is described as a constant pain rated 5/10 in severity, but worsening when eating food especially meat. The pain does not radiate. It is improved with taking a hot bath or using Tramadol as needed, which he states was prescribed by his PCP. He denies nausea, vomiting, heartburn, reflux, or dysphagia. He reports decreased appetite and weight loss of 10 pounds in the last 2 weeks. He reports regular bowel movements and denies constipation, straining or diarrhea. He reports intermittent bright red rectal bleeding with bowel movements over the last 2 months. He denies melena. He reports history of hemorrhoid irritation but is not currently treating hemorrhoids with any wjxc-vxk-tjyuszh medications. Patient denies any anticoagulation therapy. He had a non contrast CT abdomen/pelvis on 11/18/2020 for right flank pain and history of nephrolithiasis, which demonstrated a left ureteral stone. Lithotripsy was completed about 2 to 3 weeks ago. CBC and CMP on 12/16/2020 were unremarkable. Patient reports an EGD in his 20s. He denies history of peptic ulcer disease. He denies prior colonoscopy. No family history of colon cancer. Review of Systems Const: Reports weight loss. Denies fatigue, fever. CV: Denies chest pain, pacemaker, palpitations and valvular heart disease. Resp: Denies cough, sleep apnea, SOB and snoring. GI: Denies symptoms other than stated above. Musculo: Denies joint pain and muscle pain. Skin: Denies hives and rash. Neuro: Denies seizures and stroke. Psych: Denies anxiety and depression. Endocrine: Denies intolerance to cold, hot flashes and impaired glucose tolerance. Taras/Lymph: Denies anemia, blood transfusions, chemotherapy, enlarged lymph nodes and radiation treatment of any kind. Active Problems Problems Continuous RUQ abdominal pain (789.01) (R10.11) Hemorrhoids (455.6) (K64.9) Rectal hemorrhage (569.3) (K62.5) Weight loss, unintentional (783.21) (R63.4) Past Medical History Problems History of hematuria (V13.09) (Z87.448) History of Kidney stone on left side (592.0) (N20.0) Surgical History Problems History of Esophagogastroduodenoscopy History of Medial collateral ligament repair History of Renal lithotripsy Family History Mother Family history of Alive and well No family history of Colon Cancer Father Family history of Child Family history of Alive and well No family history of Colon Cancer Sibling Family history of Alive and well No family history of Colon Cancer Social History Problems Drinks coffee Marijuana Never smoked cigarettes (V49.89) (Z78.9) No alcohol use Uses chewing tobacco Allergies Medication Penicillins Cross Reactors Recorded By: Latosha Stout; 12/21/2020 10:50:03 AM Current Meds Medication NameInstruction No Reported Medications Vitals Vital Signs Recorded: 21Dec2020 10:44AM Height5 ft 11 in [id number] lb BMI Rtslsnmpxl82.57 BSA Calculated2.16 Physical Exam PHYSICAL EXAM LIMITED DUE TO TELEPHONE ENCOUNTER. Constitutional: Patient alert and oriented x3. Pleasant and cooperative. No conversational dyspnea. Appears healthy and well-developed and in no apparent distress. Results/Data 1.Laboratory studies 12/16/2020: WBC 5.8, HGB 14.6, HCT 42.0, MCV 88.3, PLT 178, glucose 105, NA 141, K 4.4, CL 014, CO2 30, BUN 12, Creat 1.03, calcium 9.2, total bili 0.5, alk phos 105, AST 26, ALT 54, cholesterol 156, triglycerides 88, HDL 39, LDL 99, PSA 1.45 Time Prep time on date of the patient encounter: 5 minutes. Time spent directly with patient/family/caregiver: 15 minutes. Additional time spent on patient care activities: 0 minutes. Documentation time: 5 minutes. Other time spent: 0 minutes. Total time on date of patient encounter: 25 minutes. Signatures Electronically signed by : LUIS Massey; Dec 21 2020 12:32PM EST (Author) [employer] Encounters Encounter Date Encounter Type Care Provider Facility Start: 10-03-2024 End: 10-03-[address] DERECK BRIDGES DO Facility:[facility] Start: 10-03-2024 End: 10-03-[address] DERECK BRIDGES DO [facility] Start: 03-19-2022 End: 03-20-[address] DERECK BRIDGES DO Facility: Start: 03-19-2022 End: 03-19-[address] DERECK BRIDGES DO [facility] Start: 01-07-2022 End: 02-23-2022 ambulatory MARIONKRISTINA CASTILLO CASE REPAIRER-DIESEL STATIONARY ENGINEER Facility:[facility] Start: 01-07-2022 End: 02-23-2022 Physical therapy management MARION CASTILLO CASE REPAIRER-DIESEL STATIONARY ENGINEER [facility] Procedures Date Procedure Procedure Detail Performing Clinician Start: 11-13-1986 Repair of medial collateral ligament of knee joint MARION CASTILLO CASE REPAIRER-DIESEL STATIONARY ENGINEER Immunizations Immunization Date Immunization Notes [facility] Provider [facility] tetanus toxoid, redu young diphtheria toxoid, and acellular pertussis vaccine, adsorbed; Translations: [Boostrix (Tdap)] MARIONKRISTINA CASTILLO CASE REPAIRER-DIESEL STATIONARY ENGINEER [facility] 05-14-2009 tetanus toxoid, redu young diphtheria toxoid, and acellular pertussis vaccine, adsorbed MARION CASTILLO CASE REPAIRER-DIESEL STATIONARY ENGINEER [facility] Payers Date Payer Category Payer Unknown [id number] 2022 Unknown [id number] 2021 Unknown [id number] 1970 Unknown [id number] [id number] 1970 Unknown [id number] [id number] 1970 Unknown [id number] Social History Date Type Detail Facility Start: 07-09-2019 Tobacco smoking status Never s moked tobacco (finding) [facility] Tobacco smoking status Smokeless tobacco user within last 30 days [facility] Sex Assigned At Male [facility] Evaluation + Plan note Note Date & Type Note Facility Evaluation + Plan note Future Appointments Appointment Date:03/01/2022 09:30:00 AM Scheduled Provider:DERECK BRIDGES DO Location:[facility] Appointment Type:PC Wellness Annual [facility] Evaluation + Plan note Note Date & Type Note Facility Evaluation + Plan note Future Appointments Appointment Date:06/23/2022 09:00:00 AM Scheduled Provider:DERECK BRIDGES DO Location:[facility] Appointment Type:PC OV [facility] Evaluation + Plan note Note Date & Type Note Facility Evaluation + Plan note Future Appointments Appointment Date:10/31/2024 08:00:00 AM Scheduled Provider:DERECK BRIDGES DO Location:[facility] Appointment Type:PC OV [facility] Hospital course Narrative Note Date & Type Note Facility Hospital course Narrative No data available for this section [facility] Hospital Discharge instructions Note Date & Type Note Facility Hospital Discharge instructions No data available for this section [facility] Progress note Note Date & Type Note Facility Progress note No data available for this section [facility] Summary Purpose Family History No Family History Records FoundNo Family History Records FoundNo Family History Records Found No data available for this section No Family History Records Found Advance Directives No Advanced Directives Records FoundNo Advanced Directives Records FoundNo Advanced Directives Records FoundNo Advanced Directives Records Found Additional Source Comments (unrecognized sect ion and content) No Status Records FoundNo Status Records FoundNo Status Records FoundNo Status Records Found INFORMATION SOURCE (unrecogn ized section and content) DATE CREATED AUTHOR 02/02/2021 [employer] DATE CREATED AUTHOR AUTHOR'S ORGANIZ ATION 03/19/2021 [facility] DATE CREATED AUTHOR AUTHOR'S ORGANIZ ATION 09/30/2022 [facility] ([place]) DATE CREATED AUTHOR AUTHOR'S ORGANIZ ATION 10/06/2024 [facility] Care Team (unrecognized sect ion and content) Personnel Name: NIKKI PICKARD Address: [address] [place] [id number]- Personnel Name: DERECK BRIDGES DO Address: [address] [place] [id number] [place] Care Team Personnel Name: DERECK BRIDGES DO Position: P4 Physician - Primary Care Member Role: Primary Care Physician Address: Address: [address] [place] [id number] [place] [address] Care Team Related Persons Name: BARBARA AVILES Name: RHETT AVILES Address: [address] [id number] [place] Address: [address] [phone] FOR RECORDS PERTAINING TO PATIENTS WHO ARE OR HAVE BEEN ENROLLED IN A CHEMICAL DEPENDENCY/SUBSTANCEABUSE PROGRAM, SOME INFORMATION MAY BE OMITTED. This clinical summary was aggregated from multiple sources. Caution should be exercised in using it in the provision of clinical care. This summary normalizes information from multiple sources, and as a consequence, information in this document may materially change the coding, format and clinical context of patient data. In addition, data may be omitted in some cases. CLINICAL DECISIONS SHOULD BE BASED ON THE PRIMARY CLINICAL RECORDS. [employer] provides no warranty or guarantee of the accuracy or completeness of information in this document.
[2025-07-12 22:00] VITALS: BP 171/98; PULSE 41; RESP 19; O2SAT 100
[2025-07-12] MEDS: Lidocaine 2% Viscous15 ML UDC 15 ML PO (22:17)
[2025-07-12 23:06] VITALS: BP 151/88; PULSE 54; RESP 17; O2SAT 99
[2025-07-12 23:16] LABS: Troponin T High Sens 2 HR 11 ng/L (<=22)
[2025-07-12 23:23] VITALS: BP 151/91; BP 151/94; BP 166/96; PULSE 50; PULSE 58
[2025-07-13 00:06] VITALS: BP 145/88; PULSE 62; RESP 18; TEMP 36.6; O2SAT 99
== END 2025-07-13 00:19 | disposition home or self-care (01) ==
PROVIDERS: Emergency Provider Emergency Medicine; Visit Provider Emergency Medicine
DX: R07.9 Chest pain, unspecified (principal); K29.70 Gastritis, unspecified, without bleeding
CPT/HCPCS: 71046; 80048; 80076; 83690; 84484; 85025; 93005; 96374; 99284; A4216